=== PATIENT | female | born 2000 | race Caucasian/White ===

== ENCOUNTER 2025-01-01 10:55 | Outpatient (CLI) | payer OTHER, SELFPAY ==
--- NOTE | ~2025-01-01 | US_ITS ---
EXAMINATION: US renal BI DATE: 01/01/2025 11:29 INDICATION: Allergic purpura. 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 TECHNIQUE: Multiple ultrasound grayscale images of the kidneys were obtained. COMPARISON: None. FINDINGS: The right kidney measures 10.8 x 3.6 x 5.0 cm. The left kidney measures 10.7 x 5.4 x 4.4 cm. The kidn eys demonstrate normal echogenicity. There is no hydronephrosis in either kidney. No stones identifi ed. The bladder is incompletely distended. Bilateral ureteral jets are visualized on color Doppler. IMPRESSION: 1. Normal kidneys without hydronephrosis. Reviewed, dictated and finalized at location A. [facility]
--- OUTSIDE RECORDS SUMMARY | 2025-01-01 11:48 | XMS_ITS | Data Portability ---
Author Organization [place] - [facility], Main Office Address [address] [place] [address] Assessment Encounter Date Assessment Date Assessment LastModified by Organization Details LastModified Time 08/08/2023 08/08/2023 The patient is status post lateral dislocation of the left knee patella. After discussion with Dr. Stern he has recommended an MRI scan for evaluation of the articular cartilage of the patellofemoral articulation and also for a better look at the retinaculum to see how much tearing is present. For now we have recommended staying in the knee immobilizer multimedia manager she is to avoid flexion she can bear full weight as long she is wearing the knee immobilizer for support. In 1 month we will start a course of physical therapy and work on gentle range of motion at that time. The patient should avoid heavy repetitive activity we will see her back after the MRI is done and talk further about the results. She and her mother voiced understanding and agrees above plan she will call for any further problems difficulties or questions. [email or web address] Not available 08/08/2023 11:20:36 09/12/2023 09/12/2023 23-year-old female presents for evaluation of her left knee. She has a patellar dislocation on 08/06/2023, when she was dancing and hit her knee. It required reduction in the ER. This is her 1st dislocation . Since then, she has been in a knee immobilizer, taking ibuprofen. She reports pain over the anterior and medial knee which has been getting worse. She currently rates her pain as 4/10. Review of systems per patient questionnaire Physical exam: Knee immobilizer was removed. She does have some stiffness in the knee, range of motion 0-130. she has tenderness to palpation over the medial facet and also over the origin of the MPFL. she has discomfort with lateral translation of the patella, 2 quadrants of translation medially and laterally. She has no other focal tenderness. Negative Diana's. Stable ligaments. MRI was reviewed, demonstrating bone bruise contusions consistent with a lateral patellar dislocation. She has no articular cartilage defects. She has signal in the MPFL. Otherwise ligaments are intact, menisci are intact. This is her 1st dislocation and we will treat this conservatively with a patellar brace, physical therapy, and a course of anti-inflammatori es. We discussed that if he has persistent instability, we would consider MPFL reconstruction, but she is able to function without any issues, then we will just continue conservative management. She will follow-up in 4-6 weeks. [email or web address] Not available 09/15/2023 09:28:22 10/25/2023 10/25/2023 23-year-old female presents for evaluation of her left knee. She had a patellar dislocation on 08/06/2023, when she was dancing and hit her knee. She elected to treat this conservatively. she has now completed physical therapy and a course of anti-inflammatori es. She states that this helped in her knee is feeling much better. 0/10 pain. She has not had any dislocations since her initial injury. Physical exam: Range of motion 0-150. No pain with palpitation around the knee. No pain with translation of patella. This time she is free to do activities as tolerated. We discussed that she should let us know if she experiences any more dislocations in the future. She can continue to work on PT exercises at home if she feels it is helpful. We will see her back as needed if any new issues arise. [email or web address] Not available 10/25/2023 21:40:00 Plan of Treatment Reminders Order Date Submit Date Provider Last Modified By Organization Details Last Modified Time Details Appointments None recorded. Lab None recorded. Referral physical therapist referral - eval and treat 2022 023 [facility] [address] [place], [address], 09:49:22 Procedures None recorded. Surgeries None recorded. Imaging MRI, knee, w/o contrast - please contact patient to schedule 2022 023 REGI Not available 11:39:14 Medication Orders Mobic 15 mg tablet 2022 023 [email or web address] [id number] [facility], [address] , [place], [address], 09:25:22 Patient TargetsNo targets recorded. Patient InstructionsNo instructions recorded. Reason for Referral Physical Therapist Referral for Pain of left knee joint eval and treat Referring Physician: Moises Negrete, Orthopedic Surgery, Encounter Date: 09/12/2023 Results Created Date Observation Date Name Description Value Unit Range Abnormal Flag Note LastModifiedBy Organization Detail LastModifiedTime 08/07/20 23 XR, knee No observ ation record ed. [email or web address] Not Available 2022 08:00:17 08/07/20 23 XR, knee No observ ation record ed. [email or web address] Not Available 2022 08:00:17 08/16/20 23 MRI, knee, w/o contr ast [facility] [address] [address] Patien t Name: DESTINY DEE Access ion #: [id number] Sex: F : 1999 6 4 Dictat ed By: Alexandria kelly Attend ing Physic marlen: MEGGAN SHAH Orderi Physic marlen: MEGGAN SHAH Exam Date: 2022 09:10 AM Exam Name: MRI KNEE LT WO Admitt ing Diagno sis(es ): CLINIC AL INFORM ATION: Left knee pain. COMPAR SHLOMO: Radiog raphs dated 023. TECHNI MATT INFORM ATION: Multis equenc e multip lanar MRI images of the left knee were obtain ed withou t contra st. FINDIN GS: Crucia te ligame nts: ACL and PCL are intact and otherw ise unrema rkable . Extens or mechan ism: Ralph ceps mechan ism and patell ar tendon are intact . There is mild edema at the femora l attach ment of the medial patell ofemor al ligame nt, possib le sprain or partia l tear. Collat eral ligame nts: Medial and latera l collat eral ligame nts are intact and otherw ise unrema rkable . Menisc i: No signif icant degene ration . No eviden ce of menisc al tear. Cartil age: No focal chondr al defect or signif icant chondr omalac ia. Bones: Focal marrow contus ions at the latera l aspect of the latera l femora l condyl e and medial aspect of the patell a consis tent with sequel ae of patell ar disloc ation/ reloca tion injury . Joint fluid: Small to modera te joint effusi on. Other: No other signif icant findin gs. IMPRES MAYO: Findin gs consis tent with patell ar disloc ation/ reloca tion injury with possib le sprain or small partia l tear at the femora l attach ment of the medial patell ofemor al ligame nt. Electr onical ly Signed by: Alexandria kelly at 2022 10:38: 02 AM Page 1 [email or web address] [facility] (Imaging) [address] [place], [address], 08/17/2023 10:54:09 08/16/20 23 08/16/2023 MRI, knee, w/o contr ast No observ ation record ed. [email or web address] [facility] [address] [place], [address], 08/16/2023 12:14:19 Result Notes None recorded. Problems Name Problem SNOMED Code Status Onset Date Resolution Date Notes Provider Name and Address Organization Details Recorded Time Pain of left knee joint 4037935990707 07 Active 2022 ANUPAM Huitron, [employer] 09:56:02 Dislocation of patellofemo ral joint 491947883 Active 2022 DIEGO Alvarez [address] [facility], [address], [place], [address] , [employer] 11:20:57 Dislocation of patellofemo ral joint 846675145 Active 2022 ANUPAM Huitron, [place] - [facility] [employer] [facility] 11:37:13 Problem Notes None recorded. Procedures Surgical History Date Name Laterality Status Provider Name and Address Organization Details Recorded Time [place] [facility] completed ANUPAM Huitron [facility] - [facility] [employer] [facility] 08/08/2023 09:55:19 Imaging Results Imaging Date Name Status LastModified by Organiz ation Details LastModified Time 08/07/2023 XR, knee completed Information no t available 08/08/2023 08:00:17 08/07/2023 XR, knee completed Information no t available 08/08/2023 08:00:17 08/16/2023 MRI, knee, w/o contrast completed [email or web address] [facility] (Im[facility]) [address] [place], [address], 08/17/2023 10:54:09 08/16/2023 MRI, knee, w/o contrast completed [email or web address] [facility] [address] [place], [address], 08/16/2023 12:14:19 Procedure Notes None recorded. Medical Equipment None Reported. Medications Name Sig Start Date Stop Date Status Note LastModified by Organization Details LastModified Time olanzapine 2.5 mg tablet TAKE 1 TABLET BY MOUTH AT BEDTIME 08/29 completed Not Available Not Available Not Available Mobic 15 mg tablet Take 1 tablet every day by oral route. 2022 active Not Available Not Available Not Avai lable oxycodone-a cetaminophe n 5 mg-325 mg tablet active Not Available Not Available No t Available buspirone 10 mg tablet TAKE 1 TABLET BY MOUTH TWICE A DAY active Not Available Not Available No t Available bupropion HCl 75 mg tablet TAKE ONE TABLET MORNING EVERY OTHER DAY FOR ONE WEEK, THEN ONE TABLET TWICE A DAY active Not Available Not Available No t Available fluoxetine 10 mg capsule TAKE 1 CAPSULE BY MOUTH EVERY MORNING FOR 7 DAYS (THEN INCREASE TO 20 MG IN THE MORNING) active Not Available Not Available No t Available fluoxetine 20 mg capsule TAKE 1 CAPSULE BY MOUTH EVERY MORNING active Not Available Not Available No t Available sertraline 50 mg tablet Take by oral route for 30 days. active Not Available Not Available No t Available bupropion HCl XL 300 mg 24 hr tablet, extended release TAKE 1 TABLET BY MOUTH EVERY DAY IN THE MORNING active Not Available Not Available No t Available bupropion HCl XL 150 mg 24 hr tablet, extended release TAKE 1 TABLET BY MOUTH EVERY MORNING active Not Available Not Available No t Available duloxetine 30 mg capsule,del ayed release TAKE 1 CAPSULE BY MOUTH ONCE A DAY active Not Available Not Available No t Available duloxetine 60 mg capsule,del ayed release TAKE 1 CAPSULE BY MOUTH EVERY DAY 08/29 completed Not Available Not Available Not Available Lutera (28) 0.1 mg-20 mcg tablet active Not Available Not Available N ot Available aripiprazol e 2 mg tablet TAKE ONE AND ONE HALF TABS A DAY active Not Available Not Available No t Available Twyneo 0.1 %-3 % topical cream Apply nightly 08/29 completed Not Available Not Available Not Available Vitals Date Recorded Body height Body mass index (BMI) Body weight Provider Name and Address Organization Details Last Updated DateTime 08/08/2023 165.1 cm 21.6 kg/m2 13670.01 arlen Vira Ashraf [facility] [employer] 08/08/2023 09:53:27 Date Recorded Body height Body mass index (BMI) Body weight Provider Name and Address Organization Details Last Updated DateTime 09/12/2023 165.1 cm 21.6 kg/m2 37899.01 arlen RinconOlindamunir Keyes [facility] [employer] 09/12/2023 11:10:31 Date Recorded Body height Body mass index (BMI) Body weight Provider Name and Address Organization Details Last Updated DateTime 10/25/2023 165.1 cm 21.6 kg/m2 30228.01 arlen Vira Ashraf [facility] [employer] 10/25/2023 11:36:20 Social History Question Answer Notes LastModified by Organizat ion Details LastModified Time What Is Your Level Of Alcohol Consumption? Occasional [email or web address] Information not available 08/08/2023 Do You Or Have You Ever Used E-cigarettes Or Vape? Former User Of Electronic Cigarettes [email or web address] Information not available 08/08/2023 Do You Or Have You Ever Used Any Other Forms Of Tobacco Or Nicotine? Yes [email or web address] Information not available 08/08/2023 Sex: Unknown Functional Status None recorded. Mental Status None recorded. Family History Relationship Description Onset Age of this Age Resolved Age Notes LastModified by Organization Details LastModified Time Maternal Grandfather Heart disease [email or web address] Not available 2022 09:54:05 Maternal Grandmother Family history of stroke [email or web address] Not available 2022 09:54:22 Father Hypertensive disorder [email or web address] Not available 2022 09:54:31 Medical History Condition Response BLINDNESS N KIDNEY STONES N MRSA N CARPAL TUNNEL SYNDROME N LUNG DISEASE/DISORDER N HISTORY OF DRUG ABUSE N RADIATION / CHEMOTHERAPY N COPD N SPORTS INJURY N ANKLE PAIN N BLOOD DISEASES N PAST SPINAL SURGERY N SCHIZOPHRENIA N SHINGLES N BOWEL PROBLEMS N SHOULDER PAIN N DEPRESSION (INCLUDING POST ) N FAILED BACK SYNDROME N STROKE/TIA N KNEE PAIN N ULCERS N OTHER MODALITIES N BENIGN PROSTATIC HYPERPLASIA N OBESITY N GERD/NAUSEA N ANEURYSM N URINARY/BLADDER/KIDNEY PROBLEMS N CORONARY ARTERY DISEASE (CAD) N Do you have Advance directive? N ADDICTION CONCERNS N USE OF BLOOD THINNERS N SKIN PROBLEMS N EMPHYSEMA N MUSCLE,JOINT OR BONE PROBLEMS N DVT N STOMACH ULCERS N BLOOD CLOTS N PAST HISTORY OF VEHICULAR ACCIDENT N USE OF NSAIDS N CONCUSSION OR SPINAL TRAUMA N ARTERIAL INSUFFICIENCY N NEUROPATHY N AIDS/HIV N FRACTURES N ELBOW PAIN N HYPERTENSION N TOURETTE'S N ANXIETY DISORDER N Metal allergy N BLOOD TRANSFUSION N ANEMIA/BLOOD DISORDER N BIPOLAR DISORDER N BRONCHITIS N OSTEOARTHRITIS N TUBERCULOSIS N FOOT PROBLEM N HEART VALVE DISORDERS N SLEEP APNEA N ALLERGIES/HAYFEVER N SOFT TISSUE INJURY N BACK INJECTIONS N INFECTIOUS DISEASE N HEART ARRHYTHMIA N INSOMNIA N ESRD N PAST INTERVENTIONAL PAIN MANAGEMENT HIST ORY N HIGH CHOLESTEROL / HYPERLIPIDEMIA N RHEUMATOID ARTHRITIS N PAST MEDICATION HISTORY N PVD N EDEMA N CHRONIC PAIN SYNDROME N CAROTID BLOCKAGE N BACK / NECK PROBLEMS N HAVE YOU BEEN HOSPITALIZED OR SEEN IN [facility] ER IN THE PAST YEAR ? N BURSITIS N HERNIATED DISC N DIALYSIS N POLYCYSTIC OVARIES N FIBROMYALGIA N OSTEOPOROSIS N ARTHRITIS N RESPIRATORY PROBLEMS N NO SIGNIFICANT PAST MEDICAL HISTORY N PAST HISTORY OF FALL N PERIPHERAL NEUROPATHY N DIABETES, TYPE N VON WILLIBRAND'S DISEASE N HEARTBURN / REFLUX N POST LAMINECTOMY SYNDROME N HEPATITIS / LIVER DISEASE N GOUT N SLEEP DISORDER N ALZHEIMER'S DISEASE N HERPES N HEADACHES/MIGRAINES N SEIZURES/EPILEPSY N VASCULAR DISEASE N Blood Disorder N HIP PAIN N DIZZINESS N HEAD TRAUMA OR INJURY N HEART DISEASE/HEART PROBLEMS N MULTIPLE SCLEROSIS N NEUROPSYCHOLOGICAL N CARDIAC ARRHYTHMIA N CANCER: SPECIFY N ANESTHESIA COMPLICATIONS N ATRIAL FIBRILLATION N AUTOIMMUNE DISEASE N Gynecological HistoryNo gynecological history recorded. Obstetrics History GPAL:G 0 P 0 0 0 0 Past Encounters Encounter ID Performer Location Encounter Start Date Encounter Closed Date Diagnosis/Indication Diagnosis SNOMED-CT Code Diagnosis ICD10 Code Diagnosis Note [id number] DIEGO Alvarez [facility] [address] [place] [address] 08/08/2023 09:32:17 08/08/2023 10:25:06 Pain of left knee joint 3221433603 57345 M25.562 Dislocatio n of patellofemoral joint 076326107 S83.005A [id number] Moises Negrete MD [facility] [address] [place] [address] 09/12/2023 11:06:22 09/12/2023 11:40:20 Pain of left knee joint 9754668266 91751 M25.267 [id number] Catherine Pereira NP [facility] [address] [place] [address] 10/25/2023 11:30:39 10/25/2023 12:24:33 Pain of left knee joint 4559972856 90707 M25.562 Dislocatio n of patellofemoral joint 990629706 S83.005D Health Concerns Section Related Observation LastModified by Organization Detai ls LastModified Time None Recorded Concern Status LastModified by Organization Details LastModified Time None Recorded Advance Directives Directive None Recorded Payers Encounter Date Sequence Insurance Name Policy Number Policy Greene Covered Member ID Greene Member ID Guarantor Name 08/08/2023 1 [employer] [id number] Sekou Aguilaren [id number] Destiny Dee 09/12/2023 1 [employer] [id number] Sapp Kirvin [id number] Destiny Nazario 10/25/2023 1 [employer] [id number] Sapp Kirvin [id number] Destiny Dee Notes Date Note Type Note Provider Name and Address Organization Details Recorded Time 08/08/2023 text/html the patient is a 23-year-old female who suffered an injury to her left knee 08/06/2023. The patient was dancing when she bumped her knee on a hard metal object. She had a lateral subluxation of the patella and was unable to get the displaced patella back in anatomic alignment. She had to go to the emergency room and be sedated at that point they were able to relocate the patella anteriorly. X-rays clearly showed a lateral dislocation of the patella. Post reduction films show normal alignment without evidence of fracture lesion mass. I have reviewed the x-rays in detail today with the patient and her mother and I agree with the above findings. Patient has moderate swelling throughout the knee very tender along the medial retinaculum she is able to do a straight leg raise and bears full weight in the knee immobilizer without discomfort. She has not tried to do any flexion of the knee has been trying to work on ice anti-inflammatorie s and elevation for swelling control. Her pain is minimal at rest. She has not had any previous issues with her knee. Certainly has significant findings with swelling and tenderness along the medial retinaculum. Quad patellar tendons appear to be intact she easily does a straight leg raise and ambulates full weight-bearing in the knee immobilizer.Past medical history sheet was reviewed and signed on intake sheet today's date drug allergies current medications family social history previous surgical history 10 point review of systems was reviewed and discussed in detail today with the patient. DIEGO Alvarez [address] [facility], [facility] [address], [place], [address], [place] [facility] 08/08/2023 11:21:23 OBGyn Episode No OBEpisode recorded.
--- OUTSIDE RECORDS SUMMARY | 2025-01-01 11:48 | XMS_ITS | Encounter Summary ---
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 No 04/05/2024 Social Connection and Isolat ion Panel [NHANES] Answer Date Recorded In a typical week, how many times do you talk on the phone with family, friends, or neighbors? More than three times a week 04/05/2024 How often do you get togethe r with friends or relatives? More than three times a week 04/05/2024 How often do you attend chur ch or baptism services? Never 04/05/2024 Do you belong to any clubs o r organizations such as pentecostal groups, unions, fraternal or athletic groups, or school groups? No 04/05/2024 How often do you attend meet ings of the clubs or organizations you belong to? Never 04/05/2024 Are you , , di vorced, , never , or living with a partner? Never 04/05/2024 Overall Financial Resource Strain (CARDIA) Answe r Date Recorded How hard is it for you to pa y for the very basics like food, housing, medical care, and heating? Not hard at all 04/05/2024 PHQ-2 Answer Date Recorded PHQ-2 Total Score (If total score is 3 or more points, staff should administer the PHQ-9) 0 08/07/2024 Hunger Vital Sign Answer Date Recorded Within the past 12 months, y ou worried that your food would run out before you got the money to buy more. Never true 04/05/20 24 Within the past 12 months, t he food you bought just didn't last and you didn't have money to get more. Never true 04/05/2024 PRAPARE - Transportation Answer Date Re corded In the past 12 months, has l ack of transportation kept you from medical appointments or from getting medications? No 03/20 In the past 12 months, has l ack of transportation kept you from meetings, work, or from getting things needed for daily living? No 04/05/2024 Housing Stability Vital Sign Answer Jhon e Recorded In the last 12 months, was t here a time when you were not able to pay the mortgage or rent on time? No 04/05/2024 In the last 12 months, how many places have you lived? 1 04/05/2024 In the last 12 months, was t here a time when you did not have a steady place to sleep or slept in a custodial (including now)? No 04/05/2024 Personal Safety Answer Date Recorded Have you ever been in or are you currently in a harmful physical or emotional relationship or is someone making you feel afraid or unsafe? Denies 04/05/2024 Comments Unknown Sex and Gender Information Value Date Recorded Sex Assigned at Not on file Legal Sex Female 4:56 PM CDT Gender Identity Not on file Sexual Orientation Not on file documented as of this encounter Discharge Disposition Disposition Code Departure Means Destination Discharge to home or self care documented in this encounter Plan of Treatment Not on file documented as of this encounter Procedures Procedure Name Priority Date/Time Associated Diagnosis Comments URINALYSIS AND REFLEX TO MICROSCOPIC AND CULTURE Routine 12/31/2024 3:35 PM TEAM ASSEMBLY LINE MACHINE OPERATOR 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 [facility] Urine, clean voided 12/31/2024 3:35 PM TEAM ASSEMBLY LINE MACHINE OPERATOR 12/31/2024 8:17 PM TEAM ASSEMBLY LINE MACHINE OPERATOR us Yaneth Mejia MD LAB URINE ORDERABLES Final Re sult [facility] [address] Department [place] [address] * (ABNORMAL) Urinalysis reflex to microscopic and culture Urine, clean voided (12/31/2024 3:35 PM TEAM ASSEMBLY LINE MACHINE OPERATOR) Color, ur Yellow Yellow Clarity, ur Clear Clear [facility] Specific gravity, ur 1.012 1.003 - 1.030 [facility] CH pH, urine 6.5 [facility]ER Comment: Interpretive Data U rine pH is affected by diet, medications, systemic acid-base disturbances, and renal tubular function. pH may affect urinary stone formation. For example, urine pH below 6.0 may help reduce the tendency for calcium phosphate stones and pH greater than 6.0 may reduce the tendency for uric acid stone formation. Source: [facility] [employer] Current Interpretive Data was last revised on 2017 Protein, ur ql Negative Negative [facility] Glucose, ur ql Negative Negative [facility] Ketones, ur Negative Negative [facility] Bilirubin, ur Negative Negative [facility] Blood, ur Trace(A) Negative [facility] Urobilinogen, ur <2.0 <2.0 mg/dL [facility] Nitrite, ur Negative Negative [facility] Leukocyte esterase, ur Negative Negative [facility] UA reflex comment Reflex to microscopic UA will be performed. [facility] Urine, clean voided 12/31/2024 3:35 PM TEAM ASSEMBLY LINE MACHINE OPERATOR 12/31/2024 8:17 PM TEAM ASSEMBLY LINE MACHINE OPERATOR Narrative [facility] - 12/31/2024 8:34 PM TEAM ASSEMBLY LINE MACHINE OPERATOR FAX RESULTS TO [phone] YANETH WILKINS Yaneth Mejia MD LAB MICROBIOLOGY - GENERAL OR DERABLES Final Result 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
--- OUTSIDE RECORDS SUMMARY | 2025-01-01 11:48 | XMS_ITS | Encounter Summary ---
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 Never 04/05/2024 Do you belong to any clubs o r organizations such as oriental orthodox groups, unions, fraternal or athletic groups, or [...] place to sleep or slept in a group home (including now)? No 04/05/2024 Personal Safety Answer [...] on file documented as of this encounter Miscellaneous Notes * Addendum Note - Von Lazaro CLT - 12/25/2024 8:15 AM CSTAddended by: VON LAZARO on: 12/31/2024 03:35 PM Modules accepted: Orders RIBUTION OPERATIONS MANAGER * Addendum Note - Von Lazaro CLT - 12/25/2024 8:15 AM CSTAddended by: VON LAZARO on: 12/31/2024 03:35 PM Modules accepted: Orders RIBUTION OPERATIONS MANAGER documented in this encounter Plan of Treatment Not on file documented as of this encounter Results * (ABNORMAL) Urinalysis reflex to microscopic and culture Urine, clean voided (12/31/2024 3:35 PM DISTRIBUTION OPERATIONS MANAGER) Color, ur Yellow Yellow Clarity, ur Clear Clear [facility] Specific gravity, ur 1.012 1.003 - 1.030 [facility] pH, urine 6.5 [facility] Comment: Interpretive Data U rine pH is affected by diet, medications, systemic acid-base disturbances, and renal tubular function. pH may affect urinary stone formation. For example, urine pH below 6.0 may help reduce the tendency for calcium phosphate stones and pH greater than 6.0 may reduce the tendency for uric acid stone formation. Source: [facility] [employer] Current Interpretive Data was last revised on [...] Reflex to microscopic UA will be performed. [facility] Urine, clean voided 12/31/2024 3:35 PM DISTRIBUTION OPERATIONS MANAGER 12/31/2024 8:17 PM DISTRIBUTION OPERATIONS MANAGER Narrative [facility] - 12/31/2024 8:34 PM DISTRIBUTION OPERATIONS MANAGER FAX RESULTS TO [phone] YANETH WILKINS us Yaneth Mejia MD LAB MICROBIOLOGY - GENERAL OR DERABLES Final Result [facility] [address] Department [place] [address] * C3 complement (12/25/2024 8:37 AM DISTRIBUTION OPERATIONS MANAGER) Complement C3 108 90 - 180 mg/dL Blood (Blood, Venous) 12/25/2024 8:37 AM DISTRIBUTION OPERATIONS MANAGER 12/25/2024 5:13 PM DISTRIBUTION OPERATIONS MANAGER Narrative [facility] - 12/25/2024 6:33 PM DISTRIBUTION OPERATIONS MANAGER FAX RESULTS TO [phone] YANETH WILKINS Yaneth Mejia MD LAB BLOOD ORDERABLES Final Re sult Performing Organization Address [facility] Co de Phone Number [facility] [address] [address] [facility] [place] [address] * IgA (12/25/2024 8:37 AM DISTRIBUTION OPERATIONS MANAGER) Pathologist [facility] Immunoglobulin A 166 70 - 400 mg/dL Blood (Blood, Venous) 12/25/2024 8:37 AM DISTRIBUTION OPERATIONS MANAGER 12/25/2024 5:13 PM DISTRIBUTION OPERATIONS MANAGER Narrative [facility] - 12/25/2024 6:17 PM DISTRIBUTION OPERATIONS MANAGER FAX RESULTS TO [phone] YANETH WILKINS Yaneth Mejia MD LAB BLOOD ORDERABLES Final Re sult Performing Organization Address [facility] Co de Phone Number [facility] [address] [address] [facility] [place] [address] * Erythrocyte sedimentation rate (12/25/2024 8:37 AM DISTRIBUTION OPERATIONS MANAGER) Pathologist [facility] Erythrocyte sedimentation rate 2 1 - 20 mm/hr Blood (Blood, Venous) 12/25/2024 8:37 AM DISTRIBUTION OPERATIONS MANAGER 12/25/2024 5:13 PM DISTRIBUTION OPERATIONS MANAGER Narrative [facility] - 12/25/2024 6:03 PM DISTRIBUTION OPERATIONS MANAGER FAX RESULTS TO [phone] YANETH WILKINS Yaneth Mejia MD LAB BLOOD ORDERABLES Final Re sult Performing Organization Address [facility] Co de Phone Number [facility] [address] [address] [facility] [place] [address] * Iron profile w/ IBC (12/25/2024 8:37 AM DISTRIBUTION OPERATIONS MANAGER) Iron 145 35 - 145 mcg/dl TIBC 347 250 - 400 mcg/dL [facility] Transferrin saturation 42 20 - 50 % [facility] Blood 12/25/2024 8:37 AM DISTRIBUTION OPERATIONS MANAGER 12/25/2024 5:13 PM DISTRIBUTION OPERATIONS MANAGER Narrative [facility] - 12/25/2024 5:43 PM DISTRIBUTION OPERATIONS MANAGER FAX RESULTS TO [phone] YANETH WILKINS Yaneth Mejia MD LAB BLOOD ORDERABLES Final Re sult Performing Organization Address City/[facility]/ZIP Co de Phone Number [facility] [address] [address] [facility] [place] [address] * Uric acid (12/25/2024 8:37 AM DISTRIBUTION OPERATIONS MANAGER) Uric acid 5.3 2.5 - 7.0 mg/dL Blood (Blood, Venous) 12/25/2024 8:37 AM DISTRIBUTION OPERATIONS MANAGER 12/25/2024 5:13 PM DISTRIBUTION OPERATIONS MANAGER Narrative [facility] - 12/25/2024 5:59 PM DISTRIBUTION OPERATIONS MANAGER FAX RESULTS TO [phone] YANETH WILKINS Yaneth Mejia MD LAB BLOOD ORDERABLES Final Re sult Performing Organization Address City/[facility]/ZIP Co de Phone Number [facility] [address] [address] [facility] [place] [address] * PTH (12/25/2024 8:37 AM DISTRIBUTION OPERATIONS MANAGER) PTH 49 15 - 65 pg/mL Blood (Blood, Venous) 12/25/2024 8:37 AM DISTRIBUTION OPERATIONS MANAGER 12/25/2024 5:13 PM DISTRIBUTION OPERATIONS MANAGER N[facility]ative [facility] - 12/25/2024 5:32 PM DISTRIBUTION OPERATIONS MANAGER FAX RESULTS TO [phone] YANETH WILKINS Yaneth Mejia MD LAB BLOOD ORDERABLES Final Re sult Performing Organization Address [facility] Co de Phone Number [facility] [address] [address] [facility] [place] [address] * CBC with auto differential (12/25/2024 8:37 AM DISTRIBUTION OPERATIONS MANAGER) WBC 7.1 3.8 - 9.9 K/cumm Hgb 14.4 11.9 - 15.5 g/dL [facility] Hct 43.7 35.6 - 45.5 % [facility] Plt 223 150 - 400 K/cumm [facility] MPV 11.6 9.1 - 12.3 fL [facility] RBC 4.63 3.90 - 5.20 M/cumm [facility] MCV 94.4 81.3 - 96.4 fL [facility] MCH 31.1 27.1 - 33.3 pg [facility] MCHC 33.0 32.3 - 35.7 g/dL [facility] RDW CV 12.9 11.1 - 14.9 % [facility] RDW SD 44.8 35.7 - 48.1 fL [facility] NRBC abs 0.00 0.00 - 0.01 K/cumm [facility] Blood 12/25/2024 8:37 AM DISTRIBUTION OPERATIONS MANAGER 12/25/2024 5:13 PM DISTRIBUTION OPERATIONS MANAGER Yaneth Mejia MD LAB BLOOD ORDERABLES Final Re sult Performing Organization Address [facility] Co de Phone Number [facility] [address] [address] [facility] [place] [address] * Magnesium (12/25/2024 8:37 AM DISTRIBUTION OPERATIONS MANAGER) Magnesium 1.7 1.4 - 2.5 mg/dL Blood (Blood, Venous) 12/25/2024 8:37 AM DISTRIBUTION OPERATIONS MANAGER 12/25/2024 5:13 PM DISTRIBUTION OPERATIONS MANAGER Narrative [facility] - 12/25/2024 5:43 PM DISTRIBUTION OPERATIONS MANAGER FAX RESULTS TO [phone] YANETH WILKINS Yaneth Mejia MD LAB BLOOD ORDERABLES Final Re sult [facility] [address] [place] [address] documented in this encounter Visit Diagnoses Diagnosis 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
--- OUTSIDE RECORDS SUMMARY | 2025-01-01 11:48 | XMS_ITS | Encounter Summary ---
Author Organization [facility] Healthcare Address [address] [place] [address] Care Team Providers Care Hotel Operations Manager Name Role Phone Tomasz Hagen MD Unavailable [phone] Bne Lorenzo MD Primary Care Provider [phone] Encounter Details Date Type Department Care Team (Late st Contact Info) Description 12/31/2024 3:30 PM DIRECTOR OF TEENAGE ACTIVITIES Lab 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 Never 04/05/2024 Do you belong to any clubs o r organizations such as congregational groups, unions, fraternal or athletic groups, or [...] place to sleep or slept in a penitentiary (including now)? 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
--- OUTSIDE RECORDS SUMMARY | 2025-01-01 11:49 | XMS_ITS | Referral Summary ---
Author Organization [facility] Address [address] [place] [address] Phone Care Team Providers Care Qualification Engineer Name Role Phone Tomasz Hagen MD Unavailable [phone] Ben Lorenzo MD Primary Care Provider [phone] Encounters Date Type Department Care Team Description 12/31/2024 3:35 PM [employer] - 12/31/2024 11:59 PM [employer] [facility] Hospital Encounter [address] [address] Persistent hematuria concurrent with and due to minor glomerular abnormality Discharge Disposition: Discharge to home or self care 12/31/2024 3:30 PM [employer] [facility] Lab 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 Outpatient Lab at [address] [phone] Persistent hematuria concurrent with and due to minor glomerular abnormality (Primary Dx) from Last 3 Months Allergies No known active allergies Medications No known medications Active Problems Problem Noted Date Diagnosed Date HSP (Henoch Schonlein purpura) (CMS/HCC) 024 Assessment & Plan (08/07/2024 3:45 PM CDT): Seen Rheumatology and recommended PCP check renal function and UA for blood every 2 months over the next 4-6 months. Orders are placed for Aug and January. Assessment & Plan (04/18/2024 4:08 PM CDT): Rash has resolved as well as abdominal pain. Encouraged close monitoring. Now and weekly for the next few weeks. Abdominal pain 04/05/2024 Acute cholecystitis 04/05/2024 Anxiety and depression 04/05/2024 ADHD 04/05/2024 Dehydration 04/05/2024 Petechial rash 04/04/2024 Assessment & Plan (04/08/2024 9:40 AM CDT): Developed 2 days ago. Most recent CBC reviewed. No notable thrombocytopenia. Will monitor. Abdominal pain, vomiting, and diarrhea Assessment & Plan (04/04/2024 4:09 PM CDT): Worsening. Likely needs IV hydration. Would also benefit from GI consult due to duration of symptoms and dark brown emesis. She and her mother are agreeable to returning to the ED. will proceed to [facility] ED. I did call report to the nurse in the ED. will follow. Assessment & Plan (2024 4:48 PM CDT): Symptoms have improved significantly however diarrhea has not fully resolved. Patient is tolerating fluids and has had no vomiting in the past 48 hours. Recommend she further increase fluids and gradually introduce more solid foods such as soups and yogurt. Can continue famotidine 20 mg nightly. Discussed using Reglan and Zofran on p.r.n. basis. Will follow-up if symptoms do not fully resolve in the next 1 week or sooner if she experiences return of symptoms. Reviewed signs and symptoms warranting return to the ER. Will repeat lab work and continue to monitor. Encounter to establish care 03/07/2023 Assessment & Plan (03/07/2023 5:28 PM CDT): Patient here to establish care; reviewed recommended preventive screenings and vaccinations. -encouraged patient to schedule appointment with local acetone recovery worker for Pap screening starting at age 21 and management of OCP. -encouraged smoking cessation -denies use of illicit/street drugs -denies excessive alcohol use or binge drinking. Heart murmur 03/07/2023 Assessment & Plan (03/07/2023 5:27 PM CDT): Faint murmur heard on exam, patient denies any cardiac history. Will check echocardiogram, especially given reports of significant fatigue per patient. She denies any shortness of breath, exercise intolerance, chest pain or palpitations. Reassured patient that we are checking an echocardiogram non emergently Fatigue 03/07/2023 Assessment & Plan (03/07/2023 5:23 PM CDT): Discussed differential diagnoses and multiple factors influencing fatigue including anemia, endocrinopathies, vitamin deficiencies, hormonal imbalance, inadequate sleep, poor diet, and lack of exercise. Encouraged healthy eating and regular physical activity. Reviewed sleep hygiene. Will continue to monitor. Mood disorder 03/07/2023 Assessment & Plan (03/07/2023 5:23 PM CDT): Following with Psychiatry, recently had medications adjusted. Patient continues to see counselor regularly who she reports she has a great relationship with. Supportive friends/family, no SI/HI. Menses, irregular 07/29/2019 Overview (03/28/2024): On OCP Resolved Problems Problem Noted Date Diagnosed Date Resolved Date Hematuria 08/07/2024 08/07/2024 Immunizations Name Administration Dates Next Due DTaP 04/27/2007,2002,2002 ,2002 DTaP 5 Pertussis 04/27/2007, 3,2002,2002, 2002 HPV, Quadrivalent 10/28/2013,06/27/2013,04/16/20 13 Hep B / HiB 07/17/2003,2002,2002 ,2002 IPV 04/27/2007,10/13/2003,2002 ,2002 Influenza, Trivalent, IM (MDV) 11/29/2012 Influenza, Unspecified 08/07/2024(Deferr ed: Patient Refused),04/18/2024(Deferred: Patient Refused),2024(Deferred: Patient Refused),08/20/2023(Deferred: Patient Refused),08/20/2023(Deferred: Patient Refused),07/21/2023(Deferred: Patient Refused),08/20/2022(Deferred: Patient Refused),08/20/2022(Deferred: Patient Refused),08/20/2022(Deferred: Patient Refused),08/20/2021(Deferred: Patient Refused) MMR 04/07/2003 MMRV 04/27/2007 Meningococcal MCV4P (Menactra) 07/29/2019,2012 Pneumococcal Conjugate 7-Valent 2002 Pneumococcal Conjugate PCV 13 07/17/2003, 002,2002,2002 Tdap 04/16/2013 Varicella 04/07/2003 Social History Tobacco Use Types Packs/Day Years Used Date Smoking Tobacco: Never Tobacco Cessation:Counseling Given: No Gaming [employer] Utilities Answer Date Recorded In the past 12 months has [employer], [employer] or water [employer] threatened to shut off services in your [...] often do you attend chur ch or sikh services? Never 04/05/2024 Do you belong to any clubs o r organizations such as adventist groups, unions, fraternal or athletic groups, or [...] place to sleep or slept in a chcf (including now)? No 04/05/2024 Personal Safety Answer [...] on file Sexual Orientation Not on file Last Filed Vital Signs Vital Sign Reading Time Taken Comments Blood Pressure 110/84 08/07/2024 3:19 PM CDT Pulse 71 08/07/2024 3:19 PM CDT Temperature 36.3 C (97.4 F) 07/19/2024 1:41 PM CDT Respiratory Rate 18 08/07/2024 3:19 PM CDT Oxygen Saturation 99% 08/07/2024 3:19 PM CDT Inhaled Oxygen Concentration - - Weight 66.8 kg (147 lb 3.2 oz) 08/07/2024 3:19 P M CDT Height 165.1 cm (5' 5 ) 08/07/2024 3:19 PM CDT Body Mass Index 24.5 08/07/2024 3:19 PM CDT Plan of Treatment Not on file Procedures Procedure Name Priority Date/Time Associated Diagnosis Comments URINALYSIS, MICROSCOPIC ONLY Routine 12/31/2024 3:35 PM [employer] Persistent hematuria concurrent with and due to minor glomerular abnormality URINALYSIS AND REFLEX TO MICROSCOPIC AND CULTURE Routine 12/31/2024 3:35 PM [employer] Persistent hematuria concurrent with and due to minor glomerular abnormality EGFR Routine 12/25/2024 8:37 AM [employer] EGFR Routine 12/25/2024 8:37 AM [employer] Persistent hematuria concurrent with and due to minor glomerular abnormality PHOSPHORUS Routine 12/25/2024 8:37 AM [employer] BILIRUBIN, DIRECT Routine 12/25/2024 8:3 7 AM [employer] COMPREHENSIVE METABOLIC PANEL Routine 12/25/2024 8:37 AM [employer] Persistent hematuria concurrent with and due to minor glomerular abnormality DIFFERENTIAL AUTO Routine 12/25/2024 8:3 7 AM [employer] Persistent hematuria concurrent with and due to minor glomerular abnormality CREATININE Routine 12/25/2024 8:37 AM [employer] Persistent hematuria concurrent with and due to minor glomerular abnormality MAGNESIUM Routine 12/25/2024 8:37 AM [employer] Persistent hematuria concurrent with and due to minor glomerular abnormality CBC WITH AUTO DIFFERENTIAL Routine 12/25/2024 8:37 AM [employer] Persistent hematuria concurrent with and due to minor glomerular abnormality PTH Routine 12/25/2024 8:37 AM [employer] Persistent hematuria concurrent with and due to minor glomerular abnormality URIC ACID Routine 12/25/2024 8:37 AM [employer] Persistent hematuria concurrent with and due to minor glomerular abnormality IRON PROFILE W/ IBC Routine 12/25/2024 8 :37 AM [employer] Persistent hematuria concurrent with and due to minor glomerular abnormality ERYTHROCYTE SEDIMENTATION RATE Routine 12/25/2024 8:37 AM [employer] Persistent hematuria concurrent with and due to minor glomerular abnormality IGA Routine 12/25/2024 8:37 AM [employer] Persistent hematuria concurrent with and due to minor glomerular abnormality C3 COMPLEMENT Routine 12/25/2024 8:37 AM [employer] Persistent hematuria concurrent with and due to minor glomerular abnormality CREATININE CLEARANCE, URINE, 24 HOUR RESULT Routine 12/25/2024 7:53 AM [employer] Persistent hematuria concurrent with and due to minor glomerular abnormality VOLUME AND PERIOD, URINE, 24 HOUR Routine 12/25/2024 7:53 AM [employer] Persistent hematuria concurrent with and due to minor glomerular abnormality PROTEIN, URINE, 24 HOUR RESULT Routine 12/25/2024 7:53 AM [employer] Persistent hematuria concurrent with and due to minor glomerular abnormality CREATININE CLEARANCE, URINE, 24 HOUR Routine 12/25/2024 7:53 AM [employer] Persistent hematuria concurrent with and due to minor glomerular abnormality PROTEIN, URINE, 24 HOUR Routine 12/25/2024 7:53 AM [employer] Persistent hematuria concurrent with and due to minor glomerular abnormality HEPATITIS C ANTIBODY Routine 07/19/2024 4:11 PM CDT Henoch-Schonlein purpura (HCC) Skin rash from Last 3 Months or Most Recently Relevant to Health Maintenance Results * (ABNORMAL) Urinalysis reflex to microscopic and culture Urine, clean voided (12/31/2024 3:35 PM [employer]) Color, ur Yellow Yellow Clarity, ur Clear Clear [facility] Specific gravity, ur 1.012 1.003 - 1.030 C[facility]ER pH, urine 6.5 [facility] Comment: Interpretive Data U rine pH is affected by diet, medications, systemic acid-base disturbances, and renal tubular function. pH may affect urinary stone formation. For example, urine pH below 6.0 may help reduce the tendency for calcium phosphate stones and pH greater than 6.0 may reduce the tendency for uric acid stone formation. Source: [facility] Current Interpretive Data was last revised on [...] CENTER Urine, clean voided 12/31/2024 3:35 PM [employer] 12/31/2024 8:17 PM [employer] Narrative [facility] - 12/31/2024 8:34 PM [employer] FAX RESULTS TO [phone] YANETH WILKINS us Yaneth Mejia MD LAB MICROBIOLOGY - GENERAL OR DERABLES Final Result Performing Organization Address [facility] Co de Phone Number [facility] [address] [place] [address] * (ABNORMAL) Urinalysis, microscopic only (12/31/2024 3:35 PM [employer]) WBC, ur 0-5 0 - 5 /HPF RBC, ur 3-5(A) 0 - 2 /HPF [facility] Epithelial cells, squamous, ur 1-5 0 - 5 /HPF [facility] Culture Reflex Comment Reflex conditions for urine culture (WBC >10) not met. [facility] Urine, clean voided 12/31/2024 3:35 PM [employer] 12/31/2024 8:17 PM [employer] us Yaneth Mejia MD LAB [place]INE [place] [address] [address] [place] [address] * eGFR (12/25/2024 8:37 AM [employer]) eGFR >90 >=60 mL/min/1. 73 m2 Comment: Interpretive Data Reference Interval Normal >/= 90 mL/min/1.73m2 Mildly decreased* 60 - 89 mL/min/1.73m2 Mildly to moderately decreased 45 - 59 mL/min/1.73m2 Moderately to severely decreased 30 - 44 mL/min/1.73m2 Severely decreased 15 - 29 mL/min/1.73m2 Kidney Failure < 15 mL/min/1.73m2 *Relative to young adult level Estimated glomerular filtration rate is determined by the 2020 CKD-EPI equation recommended by the National Kidney Foundation (A Unifying Approach to GFR Estimation: Recommendations of the NKF-ASK Task Force on Reassessing the Inclusion of Race in Diagnosing Kidney Disease, JASN 2020). The CKD-EPI equation should not be used for patients with unstable renal function and has not been validated in children and those over 70. Current interpretive data was last reviewed 2021. Blood 12/25/2024 8:37 AM [employer] 12/25/2024 5:18 PM [employer] us Yaneth Mejia MD LAB BLOOD ORDERABLES Final Re toni Performing Organization Address City/[facility]/ZIP Co de Phone Number [facility] [place] [address] [place] [address] * eGFR (12/25/2024 8:37 AM [employer]) eGFR >90 >=60 mL/min/1. 73 m2 Comment: Interpretive Data Reference Interval Normal >/= 90 mL/min/1.73m2 Mildly decreased* 60 - 89 mL/min/1.73m2 Mildly to moderately decreased 45 - 59 mL/min/1.73m2 Moderately to severely decreased 30 - 44 mL/min/1.73m2 Severely decreased 15 - 29 mL/min/1.73m2 Kidney Failure < 15 mL/min/1.73m2 *Relative to young adult level Estimated glomerular filtration rate is determined by the 2020 CKD-EPI equation recommended by the National Kidney Foundation (A Unifying Approach to GFR Estimation: Recommendations of the NKF-ASK Task Force on Reassessing the Inclusion of Race in Diagnosing Kidney Disease, JASN 2020). The CKD-EPI equation should not be used for patients with unstable renal function and has not been validated in children and those over 70. Current interpretive data was last reviewed 2021. Urine/Blood 12/25/2024 8:37 AM [employer] 12/25/2024 5:18 PM [employer] us Yaneth Mejia MD LAB BLOOD ORDERABLES Final Re sult [facility] [id number] [place] [address] * Differential, auto (12/25/2024 8:37 AM [employer]) Neutrophil abs 4.3 1.5 - 6.5 K/cumm Imm gran abs 0.0 0.0 - 0.1 K/cumm [facility] Lymphocyte abs 2.0 0.8 - 3.3 K/cumm [facility] Monocyte abs 0.6 0.2 - 0.8 K/cumm [facility] Eosinophil abs 0.2 0.0 - 0.5 K/cumm [facility] Basophil abs 0.1 0.0 - 0.1 K/cumm [facility] Neutrophil pct 59.8 % [facility] Comment: Interpretive Data Percent cell count reference ranges are not reported, since discordance with absolute values may lead to misinterpretation of CBC data. Current Interpretive Data was last revised on 2018. Imm gran pct 0.6 % [facility] Comment: Interpretive Data Percent cell count reference ranges are not reported, since discordance with absolute values may lead to misinterpretation of CBC data. Current Interpretive Data was last revised on 2018. Lymphocyte pct 28.1 % [facility] Comment: Interpretive Data Percent cell count reference ranges are not reported, since discordance with absolute values may lead to misinterpretation of CBC data. Current Interpretive Data was last revised on 2018. Monocyte pct 7.9 % [facility] Comment: Interpretive Data Percent cell count reference ranges are not reported, since discordance with absolute values may lead to misinterpretation of CBC data. Current Interpretive Data was last revised on 2018. Eosinophil pct 2.5 % [facility] Comment: Interpretive Data Percent cell count reference ranges are not reported, since discordance with absolute values may lead to misinterpretation of CBC data. Current Interpretive Data was last revised on 2018. Basophil pct 1.1 % [facility] Comment: Interpretive Data Percent cell count reference ranges are not reported, since discordance with absolute values may lead to misinterpretation of CBC data. Current Interpretive Data was last revised on 2018. Blood 12/25/2024 8:37 AM [employer] 12/25/2024 5:13 PM [employer] Yaneth Mejia MD LAB BLOOD ORDERABLES Final Re sult Performing Organization Address [facility] Co de Phone Number [facility] [address] [place] [address] * Iron profile w/ IBC (12/25/2024 8:37 AM [employer]) Iron 145 35 - 145 mcg/dl TIBC 347 250 - 400 mcg/dL [facility] Transferrin saturation 42 20 - 50 % [facility] Blood 12/25/2024 8:37 AM [employer] 12/25/2024 5:13 PM [employer] Narrative [facility] - 12/25/2024 5:43 PM [employer] FAX RESULTS TO [phone] YANETH WILKINS Yaneth Mejia MD LAB BLOOD ORDERABLES Final Re sult Performing Organization Address City/[facility]/ZIP Co de Phone Number [facility] [address] [place] [address] * CBC with auto differential (12/25/2024 8:37 AM [employer]) WBC 7.1 3.8 - 9.9 K/cumm Hgb 14.4 11.9 - 15.5 g/dL [facility] Hct 43.7 35.6 - 45.5 % [facility] Plt 223 150 - 400 K/cumm [facility] CH MPV 11.6 9.1 - 12.[address] [facility] RBC 4.63 3.90 - 5.20 M/cumm [facility] MCV 94.4 81.3 - 96.[address] [facility] MCH 31.1 27.1 - 33.[address] [facility] MCHC 33.0 32.3 - 35.7 g/dL [facility] CH RDW CV 12.9 11.1 - 14.9 % [facility] CH RDW SD 44.8 35.7 - 48.[address] [facility] NRBC abs 0.00 0.00 - 0.01 K/cumm [facility] Blood 12/25/2024 8:37 AM [employer] 12/25/2024 5:13 PM [employer] Yaneth Mejia MD LAB BLOOD ORDERABLES Final Re sult Performing Organization Address [facility] Co de Phone Number [facility] [address] [place] [address] * Erythrocyte sedimentation rate (12/25/2024 8:37 AM [employer]) Pathologist [facility] Erythrocyte sedimentation rate 2 1 - 20 mm/hr Blood (Blood, Venous) 12/25/2024 8:37 AM [employer] 12/25/2024 5:13 PM [employer] Narrative [facility] - 12/25/2024 6:03 PM [employer] FAX RESULTS TO [phone] YANETH WILKINS Yaneth Mejia MD LAB BLOOD ORDERABLES Final Re sult Performing Organization Address [facility] Co de Phone Number [facility] [address] [facility] [place] [address] * C3 complement (12/25/2024 8:37 AM [employer]) Complement C3 108 90 - 180 mg/dL Blood (Blood, Venous) 12/25/2024 8:37 AM [employer] 12/25/2024 5:13 PM [employer] Narrative [facility] - 12/25/2024 6:33 PM [employer] FAX RESULTS TO [phone] YANETH WILKINS Yaneth Mejia MD LAB BLOOD ORDERABLES Final Re sult Performing Organization Address [facility] Co de Phone Number [facility] [address] [facility] [place] [address] * Uric acid (12/25/2024 8:37 AM [employer]) Uric acid 5.3 2.5 - 7.0 mg/dL Blood (Blood, Venous) 12/25/2024 8:37 AM [employer] 12/25/2024 5:13 PM [employer] Narrative [facility] - 12/25/2024 5:59 PM [employer] FAX RESULTS TO [phone] YANETH WILKINS Yaneth Mejia MD LAB BLOOD ORDERABLES Final Re sult Performing Organization Address [facility] Co de Phone Number [facility] [address] [facility] [place] [address] * Phosphorus (12/25/2024 8:37 AM [employer]) Phosphorus, pl 4.2 2.3 - 4.5 mg/dL Blood 12/25/2024 8:37 AM [employer] 12/25/2024 5:13 PM [employer] Yaneth Mejia MD LAB BLOOD ORDERABLES Final Re sult Performing Organization Address [facility] Co de Phone Number [facility] [address] [facility] [place] [address] * PTH (12/25/2024 8:37 AM [employer]) PTH 49 15 - 65 pg/mL Blood (Blood, Venous) 12/25/2024 8:37 AM [employer] 12/25/2024 5:13 PM [employer] Narrative [facility] - 12/25/2024 5:32 PM [employer] FAX RESULTS TO [phone] YANTEH WILKINS Yaneth Mejia MD LAB BLOOD ORDERABLES Final Re sult Performing Organization Address [facility] Co de Phone Number [facility] [address] [facility] [place] [address] * Magnesium (12/25/2024 8:37 AM [employer]) Pathologist [facility] Magnesium 1.7 1.4 - 2.5 mg/dL Blood (Blood, Venous) 12/25/2024 8:37 AM [employer] 12/25/2024 5:13 PM [employer] Narrative [facility] 12/25/2024 5:43 PM [employer] FAX RESULTS TO [phone] YANETH WILKINS Yaneth Mejia MD LAB BLOOD ORDERABLES Final Re sult Performing Organization Address [facility] de Phone Number [facility] [address] [facility] [place] [address] * IgA (12/25/2024 8:37 AM [employer]) Pathologist [facility] Immunoglobulin A 166 70 - 400 mg/dL Blood (Blood, Venous) 12/25/2024 8:37 AM [employer] 12/25/2024 5:13 PM [employer] Narrative [facility] - 12/25/2024 6:17 PM [employer] FAX RESULTS TO [phone] YANETH WILKINS Yaneth Mejia MD LAB BLOOD ORDERABLES Final Re sult Performing Organization Address [facility] Co de Phone Number [facility] [address] [facility] [place] [address] * Creatinine (12/25/2024 8:37 AM [employer]) Pathologist [facility] Creatinine 0.76 0.60 - 1.10 mg/dL Urine/Blood 12/25/2024 8:37 AM [employer] 12/25/2024 5:13 PM [employer] us Yaneth Mejia MD LAB BLOOD ORDERABLES Final Re sult Performing Organization Address City/[facility]/ZIP Co de Phone Number [facility] [place] [address] [facility] [place] [address] * Bilirubin, direct (12/25/2024 8:37 AM [employer]) Bilirubin, direct 0.1 0.1 - 0.3 mg/dL Blood 12/25/2024 8:37 AM [employer] 12/25/2024 5:13 PM [employer] us Yaneth Mejia MD LAB BLOOD ORDERABLES Final Re sult Performing Organization Address [facility] de Phone Number [facility] [place] [address] [place] [address] * Comprehensive metabolic panel (12/25/2024 8:37 AM [employer]) Sodium 142 135 - 145 mmol/L Potassium, pl 3.9 3.3 - 4.9 mmol/L [facility] Chloride 104 97 - 110 mmol/L [facility] CO2 26 22 - 32 mmol/L [facility] Anion gap 12 2 - 15 mmol/L [facility] BUN 13 6 - 25 mg/dL [facility] Creatinine 0.77 0.60 - 1.10 mg/dL [facility] Glucose 81 70 - 199 mg/dL [facility] Comment: Interpretive Data Fasting glucose >/= 126 mg/dl is diagnostic for diabetes. Fasting is defined as no caloric intake for at least 8 hours. Fasting glucose between 100 mg/dl to 125 mg/dl is diagnostic of prediabetes. In a patient with classic symptoms of hyperglycemia or hyperglycemic crisis, a random glucose >/= 200 mg/dl is diagnostic for diabetes. In the absence of unequivocal hyperglycemia, results should be confirmed by repeat testing. The classification and Diagnosis of Diabetes Diabetes Care 2021; 46: S19-S40. Current interpretive data was last revised 2022. Calcium 9.2 8.5 - 10.3 mg/dL [facility] Bilirubin, total 0.6 0.1 - 1.2 mg/dL [facility] Protein, pl 6.9 6.5 - 8.5 g/dL [facility] Albumin 4.2 3.5 - 5.0 g/dL [facility] Alk phos 54 40 - 130 Units/L [facility] ALT 10 7 - 45 Units/L [facility] AST 19 10 - 45 Units/L [facility] Blood 12/25/2024 8:37 AM PRODUCE FIELD MERCHANDISER 12/25/2024 5:13 PM [employer]CE FIELD MERCHANDISER us Yaneth Mejia MD LAB BLOOD ORDERABLES Final Re sult Performing Organization Address [facility] de Phone Number PHYLLISALISSA [id number] [address] [facility] [place] [address] * Protein, urine, 24 hour (12/25/2024 7:53 AM [employer] MERCHANDISER) Protein, 24 hr, ur 80 0 - 150 mg/24H Urine 12/25/2024 7:53 AM PRODUCE FIELD MERCHANDISER 12/25/2024 5:13 PM PR[employer]CE FI[employer] MERCHANDISER us Yaneth Mejia MD LAB URINE ORDERABLES Final Re sult Performing Organization Address [facility] de Phone Number PHYLLISALISSA [id number] [facility] [place] [address] * Volume and period, urine, 24 hour (12/25/2024 7:53 AM [employer] MERCHANDISER) Volume, ur 475 mL Period, Urine Collection 1,[address] [facility] Urine 12/25/2024 7:53 AM PR[employer]CE FIELD MERCHANDISER 12/25/2024 5:13 PM [employer] MERCHANDISER us Yaneth Mejia MD LAB URINE ORDERABLES Final Re sult Performing Organization Address [facility] Co de Phone Number ATIYA [id number] [facility] [place] [address] * Creatinine clearance, urine, 24 hour (12/25/2024 7:53 AM [employer] MERCHAND[employer]) Creatinine Clearance 107 60 - 130 mL/min Creatinine, 24 hr, ur 1.2 0.6 - 1.5 g/24H ATIYA [facility]KEON Urine/Blood 12/25/2024 7:53 AM [employer]CE FI[employer] MERCHANDISER 12/25/2024 5:13 PM [employer] MERCHANDISER Yaneth Mejia MD LAB URINE ORDERABLES Final Re sult Performing Organization Address [facility] Co de Phone Number [facility] [id number] Department [place] [address] * Hepatitis C antibody Blood (07/19/2024 4:11 PM CDT) Hep C Ab Nonreactive Nonreactive Comment: Interpretive Data Nonreactive: Antibodies to HCV not detected. Does NOT exclude the possibility of recent exposure to HCV. Equivocal: Equivocal for HCV antibodies. Supplemental molecular testing will be automatically performed to determine infection status in accordance with current CDC screening recommendations. Reactive: Positive for HCV antibodies. This may represent current or past HCV infection. Supplemental molecular testing will be automatically performed to determine current infection status in accordance with current CDC screening recommendations. Interpretive data was last revised on 2020. Blood 07/19/2024 4:11 PM CDT 07/19/2024 4:11 PM CDT Eldia Arriaga MD LAB MICROBIOLOGY - GENERAL ORDERABLES Final Result Performing Organization Address [facility]/ZIP Co de Phone Number [facility] [address] Department [place] [address] from Last 3 Months or Most Recently Relevant to Health Maintenance Insurance [employer] [facility] Advance Directives For more information, please contact: [phone] * Full Code (Latest Code Status on File) Date Activated Date Inactivated Comments 04/05/2024 9:04 AM 04/06/2024 3:36 PM Care Teams Qualification Engineer Relationship Specialty Start Date End Date Ben Lorenzo MD [address] [place] [address] PCP - General Family Medicine 04/18/24 Tomasz Hagen MD [address] [place] [id number] Consulting Physician General Surgery 04/06/24
--- OUTSIDE RECORDS SUMMARY | 2025-01-01 11:49 | XMS_ITS | Clinical Summary ---
Author Organization [facility] Address [address] [place] [id number] Care Team Providers Care Escrow Assistant Name Role Phone Pcp, No Primary Care Provider Unavailabl e Allergies No known active allergies Medications Medication Sig Dispensed Refills Start Date End Date Status montelukast (SINGULAIR) 10 MG tablet Take 10 mg by mouth. 07/15/2020 Active escitalopram (LEXAPRO) 20 MG tablet Take 20 mg by mouth daily. 04/14/2022 Active levonorgestrel-ethiny l estradiol 0.1-20 MG-MCG per tablet Take 1 tablet by mouth daily. 84 tablet 3 06/06/2022 Active Active Problems No known active problems Medical History Medical History Date Comments Patient denies medical problems Seasonal allergies Anxiety Social History Tobacco Use Types Packs/Day Years Used Date Smoking Tobacco: Never Smokeless Tobacco: Never Alcohol Use Standard Drinks/Week Comments Yes 0 (1 standard drink = 0.6 oz pur e alcohol) social Inadequate Housing Answer Date Recorded Social Determinants: Housing (Overall Score Help er) 0 07/20/2019 Sexually Active Control Partners Comments Never Sex and Gender Information Value Date Recorded Sex Assigned at Not on file Gender Identity Not on file Sexual Orientation Not on file Job Start Date Occupation Industry Not on file Not on file Not on file Obstetrics History Para Term AB IAB SAB Ectopic Molar Multiple Living Live Births 0 0 0 0 0 0 0 0 0 0 0 0 Last Filed Vital Signs Vital Sign Reading Time Taken Comments Blood Pressure 112/78 06/06/2022 12:59 PM CDT Pulse 68 06/17/2021 10:46 AM CDT Temperature 36.7 C (98 F) 06/06/2022 12:59 PM CDT Respiratory Rate 16 06/06/2022 12:59 PM CDT Oxygen Saturation 98% 11/29/2020 2:47 PM LAB PACK CHEMIST Inhaled Oxygen Concentration - - Weight 60.8 kg (134 lb) 06/06/2022 12:59 PM CDT Height 162.6 cm (5' 4 ) 06/06/2022 12:59 PM CDT Body Mass Index 23 06/06/2022 12:59 PM CDT Plan of Treatment Health Maintenance Due Date Last Done Comments Depression Screening 2014 Meningococcal Serogroup B Vaccine (1 of 2 - Standard) 2018 Chlamydia and Gonorrhea Screening (if sexually active) 2020 Cervical Cancer Screening 2023 Pap Smear 2023 DTaP/Tdap/Td Vaccine (7 - Td or Tdap) 04/16/2023 04/16/2013, 04/27/2007, 04/27/2007, Additional history exists COVID-19 Vaccine ( season) 2024 Influenza Vaccine (#1) 2024 11/29/2012 Hepatitis B Vaccine Completed 07/17/2003, 2002, 2002, Additional history exists Pneumococcal Vaccine 0-49 Completed 2002, 2002, 2002, Additional history exists Varicella Vaccine Completed 04/27/2007, 04/07/2003 HPV Vaccine Completed 10/28/2013, 06/2013, 04/16/2013 Meningococcal Vaccine Completed 07/29/2019, 013 Hepatitis A Vaccine Aged Out No longe r eligible based on patient's age to complete this topic Care Teams Escrow Assistant Relationship Specialty Start Date End Date Pcp, No PCP - General 12/31/18
--- OUTSIDE RECORDS SUMMARY | 2025-01-01 11:49 | XMS_ITS | Clinical Summary ---
Author Organization [facility] Address [address] [facility] [address] [place] [address] Phone Care Team Providers Care Phytopathologist Name Role Phone Tomasz Hagen MD Unavailable [phone] Ben Lorenzo MD Primary Care Provider [phone] Allergies No known active allergies Medications No known medications Active Problems Problem Noted Date Diagnosed Date HSP (Henoch Schonlein purpura) ([facility]) 024 Assessment & Plan (08/07/2024 3:45 PM [...] returning to the ED. will proceed to [facility] ED. I did call report to the [...] -encouraged patient to schedule appointment with local guard entrance registrar for Pap screening starting at age 21 [...] Diagnosed Date Resolved Date Hematuria 08/07/2024 08/07/2024 Encounters Date Type Department Care Team Description 12/31/2024 3:35 PM DRAWING PRESS OPERATOR - 12/31/2024 11:59 PM DRAWING PRESS OPERATOR Hospital Encounter 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 [id number] [place] [address] Persistent hematuria concurrent with and due to minor glomerular abnormality Discharge Disposition: Discharge to home or self care 12/25/2024 8:15 AM DRAWING PRESS OPERATOR Lab [facility] Outpatient Lab at [address] [phone] Persistent hematuria concurrent with and due to minor glomerular abnormality (Primary Dx) from Last 3 Months Immunizations Name Administration Dates Next Due DTaP [...] 13 07/17/2003, 002,2002,2002 Tdap 04/16/2013 Varicella 04/07/2003 Surgical History Surgery Date Site/Laterality Comments WISDOM TOOTH EXTRACTION Bilateral CHOLECYSTECTOMY Medical History Medical History Date Comments Depression Anxiety ADHD (attention deficit hyperactivity disorder) Dyslexia Family History Medical History Relation Name Comments Hypertension Father Breast cancer Maternal Grandmother Depression Mother Breast cancer Paternal Great-Grandmother Relation Name Status Comments Father Alive Maternal Grandmother Mother Alive Paternal Great-Grandmother Sister Alive Social History Tobacco Use Types Packs/Day Years Used Date Smoking Tobacco: Never Tobacco Cessation:Counseling Given: No [employer] Utilities Answer Date Recorded In the past 12 months has [employer], [employer], or water [employer] threatened to shut off services in your [...] week 04/05/2024 How often do you attend [facility] or temple services? Never 04/05/2024 Do you belong to any clubs o r organizations such as mandaen groups, unions, fraternal or athletic groups, or [...] No 04/05/2024 Housing Stability Vital Sign Answer Hjon e Recorded In the last 12 months, [...] place to sleep or slept in a usp (including now)? No 04/05/2024 Personal Safety Answer [...] on file Sexual Orientation Not on file Obstetrics History Last Filed Vital Signs Vital Sign Reading [...] 08/07/2024 3:19 PM CDT Plan of Treatment Health Maintenance Due Date Last Done Comments Cervical Cancer Screening 2002 Meningococcal B Vaccine (1 o f 2 - Patient Seeks Protection) 2018 Regular Well Visit/Exam 18-64 2020 DTaP/Tdap/Td Vaccine (7 - Td or Tdap) 04/16/2023 04/16/2013, 04/27/2007, 04/27/2007, Additional history exists Covid-19 Vaccine (3 - 2023-2 5 season) 2024 03/30/2021, 03/09/2021 Influenza Vaccine (#1) 2024 11/29/2012 Depression Screening 08/07/2025 08/07/2024, 04/18/2024, 2024, Additional history exists Hepatitis B Screening Completed 07/17/2003 , 2002, 2002, Additional history exists Pneumococcal vaccine <65 Completed 003, 2002, 2002, Additional history exists Varicella Vaccines Completed 04/27/2007, 04/07/2003 HPV Vaccines Completed 10/28/2013, 06/2013, 04/16/2013 Hepatitis C Screening Completed 07/19/2024 Procedures Procedure Name Priority Date/Time Associated Diagnosis Comments URINALYSIS, MICROSCOPIC ONLY Routine 12/31/2024 3:35 PM DRAWING PRESS OPERATOR Persistent hematuria concurrent with and due to minor glomerular abnormality URINALYSIS AND REFLEX TO MICROSCOPIC AND CULTURE Routine 12/31/2024 3:35 PM DRAWING PRESS OPERATOR Persistent hematuria concurrent with and due to minor glomerular abnormality EGFR Routine 12/25/2024 8:37 AM DRAWING PRESS OPERATOR EGFR Routine 12/25/2024 8:37 AM DRAWING PRESS OPERATOR Persistent hematuria concurrent with and due to minor glomerular abnormality PHOSPHORUS Routine 12/25/2024 8:37 AM DRAWING PRESS OPERATOR BILIRUBIN, DIRECT Routine 12/25/2024 8:3 7 AM DRAWING PRESS OPERATOR COMPREHENSIVE METABOLIC PANEL Routine 12/25/2024 8:37 AM DRAWING PRESS OPERATOR Persistent hematuria concurrent with and due to minor glomerular abnormality DIFFERENTIAL AUTO Routine 12/25/2024 8:3 7 AM DRAWING PRESS OPERATOR Persistent hematuria concurrent with and due to minor glomerular abnormality CREATININE Routine 12/25/2024 8:37 AM DRAWING PRESS OPERATOR Persistent hematuria concurrent with and due to minor glomerular abnormality MAGNESIUM Routine 12/25/2024 8:37 AM DRAWING PRESS OPERATOR Persistent hematuria concurrent with and due to minor glomerular abnormality CBC WITH AUTO DIFFERENTIAL Routine 12/25/2024 8:37 AM DRAWING PRESS OPERATOR Persistent hematuria concurrent with and due to minor glomerular abnormality PTH Routine 12/25/2024 8:37 AM DRAWING PRESS OPERATOR Persistent hematuria concurrent with and due to minor glomerular abnormality URIC ACID Routine 12/25/2024 8:37 AM DRAWING PRESS OPERATOR Persistent hematuria concurrent with and due to minor glomerular abnormality IRON PROFILE W/ IBC Routine 12/25/2024 8 :37 AM DRAWING PRESS OPERATOR Persistent hematuria concurrent with and due to minor glomerular abnormality ERYTHROCYTE SEDIMENTATION RATE Routine 12/25/2024 8:37 AM DRAWING PRESS OPERATOR Persistent hematuria concurrent with and due to minor glomerular abnormality IGA Routine 12/25/2024 8:37 AM DRAWING PRESS OPERATOR Persistent hematuria concurrent with and due to minor glomerular abnormality C3 COMPLEMENT Routine 12/25/2024 8:37 AM DRAWING PRESS OPERATOR Persistent hematuria concurrent with and due to minor glomerular abnormality CREATININE CLEARANCE, URINE, 24 HOUR RESULT Routine 12/25/2024 7:53 AM DRAWING PRESS OPERATOR Persistent hematuria concurrent with and due to minor glomerular abnormality VOLUME AND PERIOD, URINE, 24 HOUR Routine 12/25/2024 7:53 AM DRAWING PRESS OPERATOR Persistent hematuria concurrent with and due to minor glomerular abnormality PROTEIN, URINE, 24 HOUR RESULT Routine 12/25/2024 7:53 AM DRAWING PRESS OPERATOR Persistent hematuria concurrent with and due to minor glomerular abnormality CREATININE CLEARANCE, URINE, 24 HOUR Routine 12/25/2024 7:53 AM DRAWING PRESS OPERATOR Persistent hematuria concurrent with and due to minor glomerular abnormality PROTEIN, URINE, 24 HOUR Routine 12/25/2024 7:53 AM DRAWING PRESS OPERATOR Persistent hematuria concurrent with and due to minor glomerular abnormality HEPATITIS C ANTIBODY Routine 07/19/2024 4:11 PM CDT Henoch-Schonlein purpura (HCC) Skin rash from Last 3 Months or Most Recently Relevant to Health Maintenance Results * (ABNORMAL) Urinalysis reflex to microscopic and culture Urine, clean voided (12/31/2024 3:35 PM DRAWING PRESS OPERATOR) Color, ur Yellow Yellow Clarity, ur [...] tendency for uric acid stone formation. Source: [employer] Current Interpretive Data was last revised on 2017 Protein, ur ql Negative Negative [facility] Glucose, ur ql Negative Negative [facility] Ketones, ur Negative Negative [facility] Bilirubin, ur Negative Negative [facility] Blood, ur Trace(A) Negative [facility] Urobilinogen, ur <2.0 <2.0 mg/dL [facility] Nitrite, ur Negative Negative [facility] Leukocyte esterase, ur Negative Negative [facility] UA reflex comment Reflex to microscopic UA will be performed. [facility] Urine, clean voided 12/31/2024 3:35 PM DRAWING PRESS OPERATOR 12/31/2024 8:17 PM DRAWING PRESS OPERATOR Narrative [facility] - 12/31/2024 8:34 PM DRAWING PRESS OPERATOR FAX RESULTS TO [phone] YANETH WILKINS Yaneth Mejia MD LAB MICROBIOLOGY - GENERAL OR DERABLES Final Result Performing Organization Address City/[facility]/ZIP Co de Phone Number [facility] [address] [place] [address] * (ABNORMAL) Urinalysis, microscopic only (12/31/2024 3:35 PM DRAWING PRESS OPERATOR) WBC, ur 0-5 0 - 5 /HPF RBC, ur 3-5(A) 0 - 2 /HPF [facility] Epithelial cells, squamous, ur 1-5 0 - 5 /HPF [facility] Culture Reflex Comment Reflex conditions for urine culture (WBC >10) not met. [facility] Urine, clean voided 12/31/2024 3:35 PM DRAWING PRESS OPERATOR 12/31/2024 8:17 PM DRAWING PRESS OPERATOR Yaneth Mejia MD LAB URINE ORDERABLES Final Re sult Performing Organization Address City/[facility]/ZIP Co de Phone Number ATIYA MCKEON [address] [employer] [place], [place] [id number] * eGFR (12/25/2024 8:37 AM DRAWING PRESS OPERATOR) eGFR >90 >=60 mL/min/1. 73 m2 Comment: [...] of Race in Diagnosing Kidney Disease, JASN 2021). The CKD-EPI equation should not be used for patients with unstable renal function and has not been validated in children and those over 70. Current interpretive data was last reviewed 2021. Blood 12/25/2024 8:37 AM DRAWING PRESS OPERATOR 12/25/2024 5:18 PM DRAWING PRESS OPERATOR us Yaneth Mejia MD LAB BLOOD ORDERABLES Final Re sult ATIYA [address] [place] [address] * eGFR (12/25/2024 8:37 AM DRAWING PRESS OPERATOR) eGFR >90 >=60 mL/min/1. 73 m2 Comment: [...] of Race in Diagnosing Kidney Disease, JASN 2021). The CKD-EPI equation should not be used for patients with unstable renal function and has not been validated in children and those over 70. Current interpretive data was last reviewed 2021. Urine/Blood 12/25/2024 8:37 AM DRAWING PRESS OPERATOR 12/25/2024 5:18 PM DRAWING PRESS OPERATOR us Yaneth Mejia MD LAB BLOOD ORDERABLES Final Re sult [facility] [address] [place] [address] * Differential, auto (12/25/2024 8:37 AM DRAWING PRESS OPERATOR) Neutrophil abs 4.3 1.5 - 6.5 K/cumm Imm gran abs 0.0 0.0 - 0.1 K/cumm [facility] Lymphocyte abs 2.0 0.8 - 3.3 K/cumm [facility] Monocyte abs 0.6 0.2 - 0.8 K/cumm [facility] Eosinophil abs 0.2 0.0 - 0.5 K/cumm [facility] Basophil abs 0.1 0.0 - 0.1 K/cumm [facility] Neutrophil pct 59.8 % [facility] Comment: Interpretive Data Percent cell count reference ranges are not reported, since discordance with absolute values may lead to misinterpretation of CBC data. Current Interpretive Data was last revised on 2018. Imm gran pct 0.6 % [facility] Comment: Interpretive Data Percent cell count reference ranges are not reported, since discordance with absolute values may lead to misinterpretation of CBC data. Current Interpretive Data was last revised on 2018. Lymphocyte pct 28.1 % [facility] Comment: Interpretive Data Percent cell count reference ranges are not reported, since discordance with absolute values may lead to misinterpretation of CBC data. Current Interpretive Data was last revised on 2018. Monocyte pct 7.9 % [facility] Comment: Interpretive Data Percent cell count reference [...] revised on 2018. Basophil pct 1.1 % [facility] Comment: Interpretive Data Percent cell count reference ranges are not reported, since discordance with absolute values may lead to misinterpretation of CBC data. Current Interpretive Data was last revised on 2018. Blood 12/25/2024 8:37 AM DRAWING PRESS OPERATOR 12/25/2024 5:13 PM DRAWING PRESS OPERATOR Yaneth Mejia MD LAB BLOOD ORDERABLES Final Re sult Performing Organization Address [facility] Co de Phone Number ATIYA [address] [facility] [place] [address] * Iron profile w/ IBC (12/25/2024 8:37 AM DRAWING PRESS OPERATOR) Iron 145 35 - 145 mcg/dl TIBC 347 250 - 400 mcg/dL [facility] Transferrin saturation 42 20 - 50 % [facility] Blood 12/25/2024 8:37 AM DRAWING PRESS OPERATOR 12/25/2024 5:13 PM DRAWING PRESS OPERATOR Narrative [facility] - 12/25/2024 5:43 PM DRAWING PRESS OPERATOR FAX RESULTS TO [phone] YANETH WILKINS Yaneth Mejia MD LAB BLOOD ORDERABLES Final Re sult Performing Organization Address [facility] Co de Phone Number [facility] [address] [address] [facility] [place] [address] * CBC with auto differential (12/25/2024 8:37 AM DRAWING PRESS OPERATOR) WBC 7.1 3.8 - 9.9 K/cumm Hgb 14.4 11.9 - 15.5 g/dL [facility] Hct 43.7 35.6 - 45.5 % [facility] Plt 223 150 - 400 K/cumm [facility] MPV 11.6 9.1 - 12.3 fL [facility] RBC 4.63 3.90 - 5.20 M/cumm [facility] MCV 94.4 81.3 - 96.4 fL [facility] MCH 31.1 27.1 - 33.3 pg [facility] MCHC 33.0 32.3 - 35.7 g/dL [facility] RDW CV 12.9 11.1 - 14.9 % [facility] RDW SD 44.8 35.7 - 48.1 fL [facility] NRBC abs 0.00 0.00 - 0.01 K/cumm [facility] Blood 12/25/2024 8:37 AM DRAWING PRESS OPERATOR 12/25/2024 5:13 PM DRAWING PRESS OPERATOR Yaneth Mejia MD LAB BLOOD ORDERABLES Final Re sult Performing Organization Address [facility]/ZIP Co de Phone Number PHYLLISALISSA [address] [address] [facility] [place] [address] * Erythrocyte sedimentation rate (12/25/2024 8:37 AM DRAWING PRESS OPERATOR) Erythrocyte sedimentation rate 2 1 - 20 mm/hr Blood (Blood, Venous) 12/25/2024 8:37 AM DRAWING PRESS OPERATOR 12/25/2024 5:13 PM DRAWING PRESS OPERATOR Narrative [facility] - 12/25/2024 6:03 PM DRAWING PRESS OPERATOR FAX RESULTS TO [phone] YANETH WILKINS Yaneth Mejia MD LAB BLOOD ORDERABLES Final Re sult Performing Organization Address [facility] Co de Phone Number [facility] [address] [address] [facility] [place] [address] * C3 complement (12/25/2024 8:37 AM DRAWING PRESS OPERATOR) Complement C3 108 90 - 180 mg/dL Blood (Blood, Venous) 12/25/2024 8:37 AM DRAWING PRESS OPERATOR 12/25/2024 5:13 PM DRAWING PRESS OPERATOR Narrative [facility] - 12/25/2024 6:33 PM DRAWING PRESS OPERATOR FAX RESULTS TO [phone] YANETH WILKINS Yaneth Mejia MD LAB BLOOD ORDERABLES Final Re sult Performing Organization Address City/[facility] Co de Phone Number [facility] [address] [address] [facility] [place] [address] * Uric acid (12/25/2024 8:37 AM DRAWING PRESS OPERATOR) Uric acid 5.3 2.5 - 7.0 mg/dL Blood (Blood, Venous) 12/25/2024 8:37 AM DRAWING PRESS OPERATOR 12/25/2024 5:13 PM DRAWING PRESS OPERATOR Narrative [facility] 12/25/2024 5:59 PM DRAWING PRESS OPERATOR FAX RESULTS TO [phone] YANETH WILKINS Yaneth Mejia MD LAB BLOOD ORDERABLES Final Re sult Performing Organization Address City/[facility] Co de Phone Number PHYLLISALISSA [address] [address] [facility] [place] [address] * Phosphorus (12/25/2024 8:37 AM DRAWING PRESS OPERATOR) Phosphorus, pl 4.2 2.3 - 4.5 mg/dL Blood 12/25/2024 8:37 AM DRAWING PRESS OPERATOR 12/25/2024 5:13 PM DRAWING PRESS OPERATOR Yaneth Mejia MD LAB BLOOD ORDERABLES Final Re sult Performing Organization Address [facility] Co de Phone Number [facility] [address] [address] [facility] [place] [address] * PTH (12/25/2024 8:37 AM DRAWING PRESS OPERATOR) PTH 49 15 - 65 pg/mL Blood (Blood, Venous) 12/25/2024 8:37 AM DRAWING PRESS OPERATOR 12/25/2024 5:13 PM DRAWING PRESS OPERATOR Narrative [facility] - 12/25/2024 5:32 PM DRAWING PRESS OPERATOR FAX RESULTS TO [phone] YANETH WILKINS Yaneth Mejia MD LAB BLOOD ORDERABLES Final Re sult Performing Organization Address City/[facility] Co de Phone Number [facility] [address] [address] [facility] [place] [address] * Magnesium (12/25/2024 8:37 AM DRAWING PRESS OPERATOR) Magnesium 1.7 1.4 - 2.5 mg/dL Blood (Blood, Venous) 12/25/2024 8:37 AM DRAWING PRESS OPERATOR 12/25/2024 5:13 PM DRAWING PRESS OPERATOR Narrative [facility] 12/25/2024 5:43 PM DRAWING PRESS OPERATOR FAX RESULTS TO [phone] YANETH WILKINS Yaneth Mejia MD LAB BLOOD ORDERABLES Final Re sult Performing Organization Address [facility] Co de Phone Number [facility] [address] [address] [facility] [place] [address] * IgA (12/25/2024 8:37 AM DRAWING PRESS OPERATOR) Immunoglobulin A 166 70 - 400 mg/dL Blood (Blood, Venous) 12/25/2024 8:37 AM DRAWING PRESS OPERATOR 12/25/2024 5:13 PM DRAWING PRESS OPERATOR Narrative [facility] 12/25/2024 6:17 PM DRAWING PRESS OPERATOR FAX RESULTS TO [phone] YANETH WILKINS Yaneth Mejia MD LAB BLOOD ORDERABLES Final Re sult Performing Organization Address [facility] Co de Phone Number [facility] [address] [address] [facility] [place] [address] * Creatinine (12/25/2024 8:37 AM DRAWING PRESS OPERATOR) Creatinine 0.76 0.60 - 1.10 mg/dL Urine/Blood 12/25/2024 8:37 AM DRAWING PRESS OPERATOR 12/25/2024 5:13 PM DRAWING PRESS OPERATOR Yaneth Mejia MD LAB BLOOD ORDERABLES Final Re sult Performing Organization Address [facility] Co de Phone Number [facility] [address] [address] [facility] [place] [address] * Bilirubin, direct (12/25/2024 8:37 AM DRAWING PRESS OPERATOR) Bilirubin, direct 0.1 0.1 - 0.3 mg/dL Blood 12/25/2024 8:37 AM DRAWING PRESS OPERATOR 12/25/2024 5:13 PM DRAWING PRESS OPERATOR us Yaneth Mejia MD LAB BLOOD ORDERABLES Final Re sult ATI[facility] [address] [place] [address] * Comprehensive metabolic panel (12/25/2024 8:37 AM DRAWING PRESS OPERATOR) Sodium 142 135 - 145 mmol/L Potassium, pl 3.9 3.3 - 4.9 mmol/L [facility] Chloride 104 97 - 110 mmol/L [facility] CO2 26 22 - 32 mmol/L [facility] Anion gap 12 2 - 15 mmol/L [facility] BUN 13 6 - 25 mg/dL [facility] Creatinine 0.77 0.60 - 1.10 mg/dL [facility] Glucose 81 70 - 199 mg/dL [facility] Comment: Interpretive Data Fasting glucose >/= 126 [...] Units/L [facility] Blood 12/25/2024 8:37 AM DRAWING PRESS OPERATOR 12/25/2024 5:13 PM DRAWING PRESS OPERATOR us Yaneth Mejia MD LAB BLOOD ORDERABLES Final Re sult Performing Organization Address [facility] Co de Phone Number [facility] [address] [address] [facility] [place] [address] * Protein, urine, 24 hour (12/25/2024 7:53 AM DRAWING PRESS OPERATOR) Protein, 24 hr, ur 80 0 - 150 mg/24H Urine 12/25/2024 7:53 AM DRAWING PRESS OPERATOR 12/25/2024 5:13 PM DRAWING PRESS OPERATOR Yaneth Mejia MD LAB URINE ORDERABLES Final Re sult Performing Organization Address [facility] de Phone Number [facility] [address] [address] [facility] [place] [address] * Volume and period, urine, 24 hour (12/25/2024 7:53 AM DRAWING PRESS OPERATOR) Volume, ur 475 mL Period, Urine Collection 1,341 min [facility] Urine 12/25/2024 7:53 AM DRAWING PRESS OPERATOR 12/25/2024 5:13 PM DRAWING PRESS OPERATOR us Yaneth Mejia MD LAB URINE ORDERABLES Final Re sult Performing Organization Address [facility] de Phone Number [facility] [address] [address] [facility] [place] [address] * Creatinine clearance, urine, 24 hour (12/25/2024 7:53 AM DRAWING PRESS OPERATOR) Creatinine Clearance 107 60 - 130 mL/min Creatinine, 24 hr, ur 1.2 0.6 - 1.5 g/24H [facility] Urine/Blood 12/25/2024 7:53 AM DRAWING PRESS OPERATOR 12/25/2024 5:13 PM DRAWING PRESS OPERATOR us Yaneth Mejia MD LAB URINE ORDERABLES Final Re sult Performing Organization Address [facility] Co de Phone Number [facility] [address] [address] [facility] [place] [address] * Hepatitis C antibody Blood (07/19/2024 4:11 [...] 4:11 PM CDT 07/19/2024 4:11 PM CDT Elida Arriaga MD LAB MICROBIOLOGY - GENERAL ORDERABLES Final Result [facility] [address] [place] [address] from Last 3 Months or Most Recently Relevant to Health Maintenance [facility] Advance Directives For more information, please contact: [phone] * Full Code (Latest Code Status on File) Date Activated Date Inactivated Comments 04/05/2024 9:04 AM 04/06/2024 3:36 PM Care Teams Phytopathologist Relationship Specialty Start Date End [place] [address] PCP - General Family Medicine 04/18/24 Tomasz Hagen MD [address] [place] [id number] Consulting Physician General Surgery 04/06/24
--- OUTSIDE RECORDS SUMMARY | 2025-01-01 11:49 | XMS_ITS | Referral Summary ---
Author Organization [facility] Address [address] [place] [id number] Care Team Providers Care Cutting Machine Offbearer Name Role Phone Pcp, No Primary Care [...] Active Active Problems No known active problems Social History Tobacco Use Types Packs/Day Years [...] file Not on file Not on file Last Filed Vital Signs Vital Sign Reading Time Taken Comments Blood Pressure 112/78 06/06/2022 12:59 PM CDT Pulse 68 06/17/2021 10:46 AM CDT Temperature 36.7 C (98 F) 06/06/2022 12:59 PM CDT Respiratory Rate 16 06/06/2022 12:59 PM CDT Oxygen Saturation 98% 11/29/2020 2:47 PM BANQUET LEAD Inhaled Oxygen Concentration - - Weight 60.8 kg (134 lb) 06/06/2022 12:59 PM CDT Height 162.6 cm (5' 4 ) 06/06/2022 12:59 PM CDT Body Mass Index 23 06/06/2022 12:59 PM CDT Plan of Treatment Not on file Care Teams Cutting Machine Offbearer Relationship Specialty Start Date End Date Pcp, No PCP - General 12/31/18
--- OUTSIDE RECORDS SUMMARY | 2025-01-01 11:49 | XMS_ITS | Clinical Summary ---
Author Organization [facility] Address [address] [place] [address] Care Team Providers Care Centrifugal Casting Machine Tender Name Role Phone Unavailable Primary Care Provider Unavailabl e Source Comments [facility],non-owned Affiliates and Associated Physician Practices is amultiple site organization consisting of ambulatory clinics and hospital sitesin [place], [place], [place] and [place]. This disclosure is being madepursuant to the Care Everywhere program and may not contain all information available regarding this patient. Last updated 18.[facility] Allergies No known active allergies Medications * Be aware that medications may not be up to date on this document. Alwaysverify current medications with the patient. Medication Sig Dispensed Refills Start Date End Date Status ondansetron, disintegrating, (Zofran ODT) 4 MG tablet Take 1 (one) tablet by mouth every 6 hours as needed for Nausea/Vomiting Allow tablet to dissolve on the tongue 14 tablet 03/28/2024 Active famotidine (Pepcid) 20 MG tablet Take 1 (one) tablet by mouth at bedtime 30 tablet 03/28/2024 Active Social History Tobacco Use Types Packs/Day Years Used Date Smoking Tobacco: Never Assessed Sex and Gender Information Value Date Recorded Sex Assigned at Not on file Gender Identity Not on file Sexual Orientation Not on file Last Filed Vital Signs Vital Sign Reading Time Taken Comments Blood Pressure 113/64 03/28/2024 2:36 PM CDT Pulse 66 03/28/2024 2:36 PM CDT Temperature 36.6 C (97.8 F) 03/28/2024 9:52 AM CDT Respiratory Rate 18 03/28/2024 2:36 PM CDT Oxygen Saturation 100% 03/28/2024 2:36 PM CDT Inhaled Oxygen Concentration - - Weight 59 kg (130 lb) 03/28/2024 9:52 AM CDT Height 165.1 cm (5' 5 ) 03/28/2024 9:52 AM CDT Body Mass Index 21.63 03/28/2024 9:52 AM CDT Plan of Treatment Health Maintenance Due Date Last Done Comments PAP SMEAR 2002 HIV SCREENING 2017 HPV VACCINE (1 - 3-dose series) 2017 CHLAMYDIA/GONORRHEA SCREENING 2018 MENINGOCOCCAL (Group B) VACC INE (1 of 2 - Standard) 2018 HEPATITIS C SCREENING 03/27/2020 DTAP/TDAP/TD VACCINES (1 - Tdap) 2021 HEPATITIS B VACCINE (1 of 3 - 19+ 3-dose series) 2021 COVID-19 VACCINE (1 - 2023-2 5 season) 2024 INFLUENZA VACCINE (#1) 2024 DEPRESSION SCREENING 11/20/2024 ZOSTER VACCINE (1 of 2) 2052 HIB VACCINE Aged Out No longer eligi ble based on patient's age to complete this topic MENINGOCOCCAL VACCINE Aged Out No anirudh bryan eligible based on patient's age to complete this topic PNEUMOCOCCAL VACCINE Aged Out No long er eligible based on patient's age to complete this topic Guarantor Name Account Type Relation to Patient Date of Phone Billing Address Nazario Linh Personal/Family Self 2000 [id number] [place] [address]
--- OUTSIDE RECORDS SUMMARY | 2025-01-01 11:49 | XMS_ITS | Patient Health Summary ---
Author Organization [facility] Address [address] [place] [address] Care Team Providers Care Counter Server Name Role Phone Unavailable Primary Care Provider Unavailabl e Note from [facility],non-owned Affiliates and Associated Physician Practices is amultiple site organization consisting of ambulatory clinics and hospital sitesin [place], [place], [place] and [place]. This disclosure is being madepursuant to the Care Everywhere program and may not contain all information available regarding this patient. Last updated 18.[facility] Allergies No known active allergies Medications * Be aware that medications may not be up to date on this document. Alwaysverify current medications with the patient. * ondansetron, disintegrating, (Zofran ODT) 4 MG tablet(Started 03/28/2024) Take 1 (one) tablet by mouth every 6 hours as needed for Nausea/Vomiting Allow tablet to dissolve on the tongue * famotidine (Pepcid) 20 MG tablet(Started 03/28/2024) Take 1 (one) tablet by mouth at bedtime Social History Tobacco Use Types Packs/Day Years [...] Mass Index 21.63 03/28/2024 9:52 AM CDT Procedures * CT ABDOMEN PELVIS W CONTRAST(Performed 03/28/2024) Performed for Abdominal pain, generalized * URINALYSIS W/MICROSCOPIC NO CULTURE(Performed 03/28/2024) * PT-INR [facility](Performed 03/28/2024) * HCG BETA BLOOD QUANTITATIVE(Performed 03/28/2024) * LIPASE BLOOD(Performed 03/28/2024) * COMPREHENSIVE METABOLIC PANEL(Performed 03/28/2024) * CBC W AUTO DIFFERENTIAL(Performed 03/28/2024) Results * CT ABDOMEN PELVIS W CONTRAST (03/28/2024 12:17 PM CDT) Anatomical Region Laterality Modality Abdomen, Pelvis Computed Tomogra phy 03/28/2024 12:2 8 PM CDT Impressions 03/28/2024 12:37 PM CDT IMPRESSION: Unremarkable CT examination of the abdomen and pelvis. > Interpreting Provider: Soni Murphy MD on 03/28/2024 12:37 PM Narrative 03/28/2024 12:37 PM CDT PROCEDURE: CT ABDOMEN PELVIS W CONTRAST DATE/TIME OF EXAM: 03/28/2024 12:17 PM CLINICAL INFORMATION: None relevant/not provided if blank. Indication: R10.84: Abdominal pain, generalized Additional History: COMPARISON: None. TECHNIQUE: CT of the abdomen and pelvis was performed following intravenous contrast utilizing standard protocol. CT dose reduction technique was used, including Automated Exposure Control. CONTRAST: IOPAMIDOL 76 % IV SOLN:90 mL FINDINGS: Lung bases: Normal. Hepatobiliary system: Normal. Gallbladder: Normal. Spleen: Normal. Pancreas: Normal. Kidneys/Bladder: Kidneys are normal size and morphology. No stones or hydronephrosis seen. Urinary bladder was empty at the time of examination. Adrenal Glands: Normal. Gastrointestinal: Normal. Appendix: Normal Pelvic Organs: Normal. Peritoneal cavity: Normal. Vascular: Normal. Bones: Normal. Procedure Note Soni Murphy MD - 03/28/2024 PROCEDURE: CT ABDOMEN PELVIS W CONTRAST DATE/TIME OF EXAM: 03/28/2024 12:17 PM CLINICAL INFORMATION: None relevant/not provided if blank. Indication: R10.84: Abdominal pain, generalized Additional History: COMPARISON: None. TECHNIQUE: CT of the abdomen and pelvis was performed following intravenouscontrast utilizing standard protocol. CT dose reduction technique was used, including Automated ExposureControl. CONTRAST: IOPAMIDOL 76 % IV SOLN:90 mL FINDINGS: Lung bases: Normal. Hepatobiliary system: Normal. Gallbladder: Normal. Spleen: Normal. Pancreas: Normal. Kidneys/Bladder: Kidneys are normal size and morphology. No stones or hydronephrosis seen. Urinary bladder was empty at the time of examination. Adrenal Glands: Normal. Gastrointestinal: Normal. Appendix: Normal Pelvic Organs: Normal. Peritoneal cavity: Normal. Vascular: Normal. Bones: Normal. IMPRESSION: Unremarkable CT examination of the abdomen and pelvis. > Interpreting Provider: Soni Murphy MD on 412:37 PM Aisha Coreas PA-C CT ORDERABLES * (ABNORMAL) URINALYSIS W/MICROSCOPIC NO CULTURE (03/28/2024 10:21 AM CDT) Color UA Ashlyn(A) Straw, Yellow 03/28/2024 10:48 AM [facility] Clarity UA Clear Clear 03/28/2024 10:48 AM [facility] Specific [place] UA 1.034(H) 1.005 - 1.030 03/28/2024 10:48 AM [facility] pH UA 5.0 5.0 - 8.0 pH 03/28/2024 10:48 AM [facility] Protein UA 1+(A) Negative 03/28/2024 10:48 AM [facility] Glucose UA Negative Negative 03/28/2024 10:48 AM [facility] Ketone UA 2+(A) Negative 03/28/2024 10:48 AM [facility] Bilirubin UA Negative Negative 03/28/2024 10:48 AM [facility] Blood UA 3+(A) Negative 03/28/2024 10:48 AM [facility] Nitrite UA Negative Negative 03/28/2024 10:48 AM [facility] Leukocyte Esterase Negative Negative 03/28/2024 10:48 AM [facility] Urobilinogen UA 2.0(A) Negative mg/dL 03/28/2024 10:48 AM [facility] RBC UA 51-100(A) None Seen, 0-2, 3-5 /HPF 03/28/2024 10:48 AM [facility] WBC UA 0-5 None Seen, 0-5 /HPF 03/28/2024 10:48 AM [facility] Squamous Epithelial Cells UA 0-2 None Seen, 0-2, 3-5 /HPF 03/28/2024 10:48 AM [facility] Mucus UA 4+ /LPF 03/28/2024 10:48 AM [facility] Urine URINE SPECIMEN OBTAINED BY CLEAN CATCH PROCEDURE / Unknown Collection / Unknown 03/28/2024 10:21 AM CDT 03/28/2024 10:24 AM CDT Narrative [facility] - 03/28/2024 10:48 AM CDT Aisha Coreas PA-C LAB - URINALYSIS O RDERABLES [address] [address], [facility] [phone] * PT-INR [facility] (03/28/2024 10:15 AM CDT) PT 14.0 12.1 - 14.8 Seconds 03/28/2024 10:41 AM [facility] INR 1.1 See Comment 03/28/2024 10:41 AM [facility] Comment:The suggested therap eutic range for standard coumadin (warfarin) therapy is an INR of 2.0-3.0. For high-risk patients (Mechanical Mitral Valve Prosthesis, etc.), the suggested prophylactic therapeutic range is an INR of 2.5-3.5. Blood BLOOD SPECIMEN / Unknown Venipuncture / Unknown 03/28/2024 10:15 AM CDT 03/28/2024 10:20 AM CDT Aisha Coreas PA-C LAB - COAGULATION ORDERABLES Performing Organization Address City/State/[facility] Co de Phone Number [facility] [address] [place] [address], [facility] [phone] * (ABNORMAL) CBC W AUTO DIFFERENTIAL (03/28/2024 10:15 AM CDT) WBC 17.6(H) 4.0 - 10.7 x10E9/L 03/28/2024 10:29 AM [facility] RBC Count 5.10 3.90 - 5.20 x10E12/L 03/28/2024 10:29 AM [facility] Hemoglobin 15.6 11.9 - 15.8 g/dL 03/28/2024 10:29 AM [facility] Hematocrit 44.3 34.8 - 46.1 % 03/28/2024 10:29 AM [facility] MCV 86.9 80.0 - 98.0 fL 03/28/2024 10:29 AM [facility] MCH 30.6 26.7 - 33.6 pg 03/28/2024 10:29 AM [facility] MCHC 35.2 31.7 - 36.3 g/dL 03/28/2024 10:29 AM [facility] RDW-CV 11.9 11.3 - 14.8 % 03/28/2024 10:29 AM [facility] Platelet Count 261 150 - 420 x10E9/L 03/28/2024 10:29 AM [facility] MPV 11.5(H) 7.8 - 11.4 fL 03/28/2024 10:29 AM [facility] Neutrophil % 85.8(H) 41.0 - 74.0 % 03/28/2024 10:29 AM [facility] Lymphocyte % 6.9(L) 17.0 - 47.0 % 03/28/2024 10:29 AM [facility] Monocyte % 6.1 3.0 - 11.0 % 03/28/2024 10:29 AM [facility] Eosinophil % 0.3 0.0 - 7.0 % 03/28/2024 10:29 AM [facility] Basophil % 0.4 0.0 - 1.6 % 03/28/2024 10:29 AM [facility] Immature Granulocytes % 0.5 0.0 - 1.0 % 03/28/2024 10:29 AM [facility] Neutrophil Absolute 15.13(H) 1.60 - 7.50 x10E9/L 03/28/2024 10:29 AM [facility] Lymphocyte Absolute 1.22 1.00 - 4.40 x10E9/L 03/28/2024 10:29 AM [facility] Monocyte Absolute 1.07(H) 0.15 - 1.00 x10E9/L 03/28/2024 10:29 AM [facility] Eosinophil Absolute 0.05 0.00 - 0.60 x10E9/L 03/28/2024 10:29 AM [facility] Basophil Absolute 0.07 0.00 - 0.13 x10E9/L 03/28/2024 10:29 AM [facility] Blood BLOOD SPECIMEN / Unknown Venipuncture / Unknown 03/28/2024 10:15 AM CDT 03/28/2024 10:22 AM T Aisha Coreas PA-C LAB - HEMATOLOGY O RDERABLES [facility] [address] [place] [address], [facility] [phone] * (ABNORMAL) COMPREHENSIVE METABOLIC PANEL (03/28/2024 10:15 AM CDT) BUN 14 7 - 26 mg/dL 03/28/2024 10:51 AM [facility] Creatinine 0.80 0.56 - 0.96 mg/dL 03/28/2024 10:51 AM [facility] Sodium 140 136 - 145 mmol/L 03/28/2024 10:51 AM [facility] Potassium 3.9 3.5 - 4.5 mmol/L 03/28/2024 10:51 AM [facility] Chloride 104 98 - 107 mmol/L 03/28/2024 10:51 AM [facility] CO2 22 22 - 29 mmol/L 03/28/2024 10:51 AM [facility] Glucose 103 70 - 115 mg/dL 03/28/2024 10:51 AM [facility] Calcium 9.9 8.4 - 10.2 mg/dL 03/28/2024 10:51 AM [facility] Protein Total 8.1 6.0 - 8.3 g/dL 03/28/2024 10:51 AM [facility] Albumin 4.1 3.4 - 5.0 g/dL 03/28/2024 10:51 AM [facility] Bilirubin Total 0.6 0.2 - 1.2 mg/dL 03/28/2024 10:51 AM [facility] Alkaline Phosphatase 69 40 - 150 U/L 03/28/2024 10:51 AM [facility] ALT 10 5 - 55 U/L 03/28/2024 10:51 AM [facility] AST 10 5 - 34 U/L 03/28/2024 10:51 AM [facility] Anion Gap 14 6 - 16 03/28/2024 10:51 AM [facility] BUN/Creatinine Ratio 18 7 - 23 03/28/2024 10:51 AM [facility] Osmolality Calculated 291 275 - 295 mOsm/kg 03/28/2024 10:51 AM [facility] Albumin/Globulin Ratio 1.0(L) 1.1 - 2.3 03/28/2024 10:51 AM [facility] eGFR by CKD-EPI >90 >=90 mL/min/1.7 3 m2 03/28/2024 10:51 AM [facility] Blood BLOOD SPECIMEN / Unknown Venipuncture / Unknown 03/28/2024 10:15 AM CDT 03/28/2024 10:22 AM [facility] Aisha Coreas PA-C LAB - CHEMISTRY OR DERABLES [address] [address], [facility] [phone] * HCG BETA BLOOD QUANTITATIVE (03/28/2024 10:15 AM CDT) Beta-hCG Total Quantitative <3 mIU/mL 03/28/2024 11:06 AM CDT [facility] Comment: HCG Numeric Result Interpretation: Non- Females: < 5 mIU/mL Post-Menopausal Females: < 7 mIU/mL This assay is cleared for use in the early detection of only. It is not approved for any other uses such as tumor marker screening, tumor marker monitoring, etc. and should not be used for any other purposes. Blood BLOOD SPECIMEN / Unknown Venipuncture / Unknown 03/28/2024 10:15 AM CDT 03/28/2024 10:22 AM CDT Aisha Coreas PA-C LAB - CHEMISTRY OR DERABLES Performing Organization Address [facility]/ZIP Co de Phone Number [address] [address], [facility] [phone] * LIPASE BLOOD (03/28/2024 10:15 AM CDT) [facility] Lipase 13 8 - 78 U/L 03/28/2024 10:51 AM CDT [facility] Blood BLOOD SPECIMEN / Unknown Venipuncture / Unknown 03/28/2024 10:15 AM CDT 03/28/2024 10:22 AM CDT Narrative [facility] - 03/28/2024 10:51 AM CDT Lipase results from the [employer] Al[employer] analyzer may not be comparable with other methodologies. Aisha Coreas PA-C LAB - CHEMISTRY OR DERABLES [address] [address], [facility] [phone]
--- OUTSIDE RECORDS SUMMARY | 2025-01-01 11:49 | XMS_ITS | Clinical Summary ---
Author Organization [facility] Address [address] [place] [address] Care Team Providers Care Manager Helpdesk Name Role Phone Ben Lorenzo Primary Care Provider [phone] Allergies No known active allergies Medications escitalopram (LEXAPRO) 20 MG tablet Take 20 mg by mouth 1 (one) time each day 2 12/23/19 25 Discontinued( Discontinued by another clinician (does not appear on AVS)) famotidine (PEPCID) 20 MG tablet Take 20 mg by mouth at bed time 4 12/23/19 25 Discontinued( Therapy completed) levonorgestrel- ethinyl estradiol (AVIANE,ALESSE, LESSINA) 0.1-20 MG-MCG per tablet Take 1 tablet by mouth 1 (one) time each day 2 12/23/19 25 Discontinued( Therapy completed) montelukast (SINGULAIR) 10 MG tablet Take 10 mg by mouth every night 0 12/23/19 25 Discontinued( Discontinued by another clinician (does not appear on AVS)) Active Problems Problem Noted Date Diagnosed Date 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 lesion from Last 3 Months Family History Medical History Relation Comments Hypertension Father Cancer Maternal Grandmother breast Depression Mother Cancer Paternal Grandmother breast No Known Problems Sister Relation Status Comments Father Alive Maternal Grandmother Mother Alive Paternal Grandmother Sister Alive Social History Tobacco Use Types Packs/Day Years Used Date Smoking Tobacco: Never Smokeless Tobacco: Never Alcohol Use Standard Drinks/Week Comments Yes 0 (1 standard drink = 0.6 oz pur e alcohol) 2-3 drinks per month Comments Unknown Sex and Gender Information Value Date Recorded Sex Assigned at Not on file Legal Sex Female 1:59 PM EDT Gender Identity Not on file Sexual Orientation Not on file Last Filed Vital Signs Vital Sign Reading Time Taken Comments Blood Pressure 120/79 12/23/2024 10:57 AM HELPER DRIVER Pulse 77 12/23/2024 10:57 AM HELPER DRIVER Temperature 37.1 C (98.7 F) 12/23/2024 10:57 AM HELPER DRIVER Respiratory Rate - - Oxygen Saturation 95% 12/23/2024 10:57 AM HELPER DRIVER Inhaled Oxygen Concentration - - Weight 60.8 kg (134 lb) 12/23/2024 10:57 AM HELPER DRIVER Height 165.1 cm (5' 5 ) 12/23/2024 10:57 AM HELPER DRIVER Body Mass Index 22.3 12/23/2024 10:57 AM HELPER DRIVER Plan of Treatment Upcoming Encounters Date Type Department Care Team (Late st Contact Info) Description 01/21/2025 1:30 PM HELPER DRIVER Office Visit [facility]. [address] [place] [address] Kobe Mejia MD [address] [place] [address] Health Maintenance Due Date Last Done Comments Pneumococcal Vaccine: Pediat rics (0 to 5 Years) and At-Risk Patients (6 to 64 Years) (1 of 2 - PPSV23 or PCV20) 09/11/2003 07/17/2003, 2002, 2002, Additional history exists Influenza Vaccine (#1) 2024 Hepatitis B Vaccine Completed 07/17/2003, 2002, 2002, [place] [address] [employer] Care Teams Manager Helpdesk Relationship Specialty Start [place] [address] PCP - General Internal Medicine 08/09/24
--- OUTSIDE RECORDS SUMMARY | 2025-01-01 11:49 | XMS_ITS | Encounter Summary ---
Author Organization [facility] Address [address] [place] [address] Care Team Providers Care Software Support Engineer Name Role Phone Pcp, No Primary Care Provider Unavailabl e Encounter Details Date Type Department Care Team (Late st Contact Info) Description 05/26/2023 E-Advice [facility] [address] [place] [address] Medication Refill Social History Tobacco Use Types Packs/Day Years [...] file Not on file Not on file documented as of this encounter Plan of Treatment Not on file documented as of this encounter Visit Diagnoses Not on filedocumented in this encounter Care Teams Software Support Engineer Relationship Specialty Start Date End Date Pcp, No PCP - General 12/31/18 documented as of this encounter
--- OUTSIDE RECORDS SUMMARY | 2025-01-01 11:49 | XMS_ITS | Encounter Summary ---
Author Organization [facility] Address [address] [place] [address] Care Team Providers Care Wet Process Miller Head Assistant Name Role Phone Pcp, No Primary Care Provider Unavailabl e Encounter Details Date Type Department Care Team (Late st Contact Info) Description 05/06/2022 E-Advice [facility] [address] [place] [address] Needs to schedule Annual appointment Social History Tobacco Use Types Packs/Day Years Used Date Smoking Tobacco: Never Smokeless Tobacco: Never Alcohol Use Standard Drinks/Week Comments Never 0 (1 standard drink = 0.6 oz pur e alcohol) Inadequate Housing Answer Date Recorded Social Determinants: [...] on filedocumented in this encounter Care Teams Wet Process Miller Head Assistant Relationship Specialty Start Date End Date Pcp, No PCP - General 12/31/18 documented as of this encounter
--- OUTSIDE RECORDS SUMMARY | 2025-01-01 11:49 | XMS_ITS | Referral Summary ---
Author Organization [facility] [employer] Address [address] [place] [address] Care Team Providers Care Career Services Assistant Name Role Phone Unavailable Primary Care Provider Unavailabl e Source Comments [facility] [employer],non-owned Affiliates and Associated Physician Practices is amultiple site organization consisting of ambulatory clinics and hospital sitesin [place], [place], [place] and [place]. This disclosure is being madepursuant to the Care Everywhere program and may not contain all information available regarding this patient. Last updated 18.[facility] [employer] Allergies No known active allergies Medications * [...] 03/28/2024 9:52 AM CDT Plan of Treatment Not on file Guarantor Name Account Type Relation to Patient Date of Phone Billing Address Linh Lange Personal/Family Self 2000 [id number] [place] [address]
== END 2025-01-01 10:56 | disposition home or self-care (01) ==
PROVIDERS: Visit Provider Internal Medicine Nephrology
DX: D69.0 Allergic purpura (principal); N02.0 Recurrent and persistent hematuria with minor glomerular abnormality
CPT/HCPCS: 76775